=== PATIENT | female | born 1980 | race Caucasian/White ===

== ENCOUNTER 2020-01-08 10:15 | Outpatient (REF) | payer OTHER, SELFPAY ==
[2020-01-08 11:40] LABS: Alanine Aminotransferase 21 U/L (0-31); Albumin Level 4.2 g/dL (3.5-5.0); Alkaline Phosphatase 98 U/L (39-117); Anion Gap 12 (12-20); Aspartate Amino Transferase 19 U/L (5-31); Bilirubin Total 0.5 mg/dL (0.0-1.0); Blood Urea Nitrogen 7 mg/dL (9-16); Carbon Dioxide 29 mmol/L (22-29); Chloride 102 mmol/L (96-108); Cholesterol 137 mg/dL; Estimated Glomerular Filt Rate > 60; Glucose Random 93 mg/dL (60-115); HDL Cholesterol 30 mg/dL; LDL Cholesterol Calculated 56 mg/dl; Potassium 4.2 mmol/l (3.3-5.1); Sodium 139 mmol/L (135-145); Triglycerides 259 mg/dL
== END 2020-01-08 10:16 | disposition home or self-care (01) ==
LOC: HO.LAB 10:15
PROVIDERS: PCP Internal Medicine; Visit Provider Internal Medicine
DX: Z00.00 Encounter for general adult medical examination without abnormal findings (principal); M54.16 Radiculopathy, lumbar region; E78.2 Mixed hyperlipidemia; I10 Essential (primary) hypertension
CPT/HCPCS: 80053; 80061

== ENCOUNTER 2020-03-12 19:25 | Emergency (ER) | payer OTHER, SELFPAY ==
[2020-03-12 19:56] VITALS: BP 150/82; PULSE 82; RESP 16; TEMP 37; O2SAT 100; BMI 32.9
[2020-03-12 20:00] VITALS: BP 151/87; PULSE 84; RESP 16; TEMP 37.1; O2SAT 99
[2020-03-12 20:46] LABS: MANUAL DIFF FLAG NO
[2020-03-12 20:48] LABS: Basophils Percent Auto 0.4 % (0-2); Eosinophils Absolute Auto 0.1 X10*3/uL (0.0-0.4); Eosinophils Percent Auto 1.6 % (0-4); Hematocrit 38.5 % (37-47); Imm Gran Abs Auto 0.02 X10*3/uL (0.00-0.03); Imm Gran Pct Auto 0.2 % (0.0-0.4); Lymphocytes Absolute Auto 2.8 X10*3/uL (1.2-4.9); Lymphocytes Percent Auto 34.1 % (20-40); Mean Corpuscular HGB Conc 33.8 g/dl (31.0-35.0); Mean Corpuscular Hemoglobin 28.3 pg (27.0-33.0); Mean Corpuscular Volume 83.7 fL (80-98); Mean Platelet Volume 10.2 fL (9.4-12.3); Monocytes Absolute Auto 0.3 X10*3/uL (0.1-1.2); Monocytes Percent Auto 3.5 % (2-11); Neutrophils Percent Auto 60.2 % (45-73); Platelet Count 348 X10*3/uL (160-400); Red Cell Distribution Width 12.9 % (11.0-16.0); White Blood Count 8.2 X10*3/uL (4.8-10.8)
--- NOTE | 2020-03-12 20:59 | ED.HA ---
HPI - Headache General Chief Complaint: Headache Stated Complaint: headache Time Seen by Provider: 03/12/20 20:59 Source: patient Mode of arrival: ambulatory Limitations: no limitations History of Present Illness HPI Narrative: 39 yo female with HTN on amlodipine noted headaches frontal that started at 1pm today - no AC therapy, noted BP to be 160s/100s, some mild photophobia has had migraines in the past, no vomiting, no numbness or weakness, did not try anything for her BP did call her PCP who put new Rx in for her but has not taken it yet. did have a mild headache yesterday so she took tylenol with some relief MD elicited complaint: headache Pertinent past history: migraines and hypertension Onset (ago): hour(s) (8 hours ago started at 1pm) Onset description: gradually Location: frontal Severity: moderate Quality & Timing: aching and throbbing Exacerbating factors: none Relieving factors: nothing Context: occurred at rest Associated symptoms: nausea and photophobia Treatments prior to arrival: none Related Data Previous Rx's Medication Instructions Recorded diazepam [Valium] 5 mg PO TID PRN #10 tab 03/12/20 Allergies Allergy/AdvReac Type Severity Reaction Status Date / Time No Known Allergies Allergy Verified 03/12/20 20:00 [No Known Allergies*] Review of Systems Review of Systems: Constitutional : No Fever, No Chills, No Fatigue ENT/Mouth : No sore throat, No Rhinorrhea Eyes: pos photophobia, No Swelling, No Redness Cardiovascular : No Chest Pain, No SOB, No Dyspnea on Exertion Respiratory : No Cough, No Sputum Gastrointestinal : No Nausea, No Vomiting, No Diarrhea, No abdominal Pain Genitourinary : No Dysuria, No Urinary Frequency, No Hematuria, Musculoskeletal : No joint pain, No Myalgias, No Joint Swelling Skin : No Skin Lesions, No rash Neuro : No Weakness, No Numbness, No Dizziness, positive Headache Psych : No Anxiety/Panic, No Depression Heme/Lymph: No Bruising, No Bleeding,No Lymphadenopathy Endocrine : No Polyuria, No Polydipsia All other systems reviewed and are negative [facility] Past Medical History Attestation statement: The following information was validated with the patient. Medical History High blood pressure Social History Social History (Updated 03/12/20 @ 21:12 by Tasha Flores DO) Smoking Status: Never smoker Use of substances other than those prescribed or required for medical reasons: No Advance Directives: No Advance Directives Information Provided: Yes Physical Exam Vital Signs: Vital Signs: Last Vital Signs Temp 98.7 F 03/12/20 20:00 Pulse 84 03/12/20 20:00 Resp 16 03/12/20 20:00 BP 151/87 H 03/12/20 20:00 Pulse Ox 99 03/12/20 20:00 Body Mass Index 32.9 Appearance: Alert. Oriented X3. No acute distress. Eyes: Pupils equal, round and reactive to light. ENT: Pharynx normal. Neck: Normal inspection. Neck supple. no meningeal signs her thyroid does feel slightly enlarged no goiter felt CVS: Normal heart rate and rhythm. Pulses normal. Respiratory: No respiratory distress. Breath sounds normal. Abdomen: Soft and non-tender. Skin: Skin warm and dry. Normal skin color. Normal skin turgor. Extremities: No lower extremity edema. No calf ttp Neuro: Oriented X 3. No motor deficit. No sensory deficit. Course Course Course Narrative: patient reports symptoms resolved, BP 124/61 at this time, stable for DC discussed need for thyroid follow up MDM - Headache MDM Narrative Medical decision making narrative: 39 yo female with gradual onset headache no neuro deficits no AC therapy no fevers - hx unlikely to be SAH or 3D ANIMATOR infection - likely HTN related vs migraine at this time labs ordered from - will give tylenol and valium and see if this improves her symptoms, added on TSH for enlarged thyroid will discuss PCP follow for labs and possible US Lab Data Result diagrams: 03/12/20 20:40 03/12/20 20:40 Labs: Lab Results 03/12/20 03/12/20 Range/Units 20:40 20:40 WBC 8.2 (4.8-10.8) X10*3/uL RBC 4.60 (4.20-5.50) X10*6/uL Hgb 13.0 (12.0-16.0) g/dl Hct 38.5 (37-47) % MCV 83.7 (80-98) fL MCH 28.3 (27.0-33.0) pg MCHC 33.8 (31.0-35.0) g/dl RDW 12.9 (11.0-16.0) % Plt Count 348 (160-400) X10*3/uL MPV 10.2 (9.4-12.3) fL Immature Gran % (Auto) 0.2 (0.0-0.4) % Neut % (Auto) 60.2 (45-73) % Lymph % (Auto) 34.1 (20-40) % [place] % (Auto) 3.5 (2-11) % Eos % (Auto) 1.6 (0-4) % Baso % (Auto) 0.4 (0-2) % Lymph # (Auto) 2.8 (1.2-4.9) X10*3/uL [place] # (Auto) 0.3 (0.1-1.2) X10*3/uL Eos # (Auto) 0.1 (0.0-0.4) X10*3/uL Baso # (Auto) 0.0 (0.0-0.2) X10*3/uL Abs Immat Gran (auto) 0.02 (0.00-0.03) X10*3/uL Absolute Neuts (auto) 5.0 (2.0-8.3) X10*3/uL Absolute Nucleated RBC 0.000 (0.0-0.012) X10*3/uL Nucleated RBC % (auto) 0.0 (0.0-0.2) /100WBC Sodium 140 (135-145) mmol/L Potassium 3.5 (3.3-5.1) mmol/l Chloride 102 (96-108) mmol/L Carbon Dioxide 27 (22-29) mmol/L Anion Gap 15 (12-20) BUN 6 L (9-16) mg/dL Creatinine 0.69 (0.5-1.4) mg/dL Estim Creat Clear Calc 108.4 Estimated GFR > 60 Random Glucose 123 H (60-115) mg/dL Calcium 8.9 (8.4-10.2) mg/dL Total Bilirubin 0.3 (0.0-1.0) mg/dL AST 18 (5-31) U/L ALT 22 (0-31) U/L Alkaline Phosphatase 111 (39-117) U/L Total Protein 7.3 (6.5-8.0) g/dL Albumin 4.3 (3.5-5.0) g/dL Discharge Plan Discharge Clinical Impression: Tension headache Patient Disposition: Home, Self-Care Instructions: Tension Headache (ED) Additional Instructions: return to ED for any worsening symptoms or concerns YOUR THYROID GLAND FELT SLIGHTLY ENLARGED PLEASE SEE YOUR PRIMARY CARE DOCTOR YOU MAY NEED AN ULTRASOUND Prescriptions: New diazepam [Valium] 5 mg tablet 5 mg PO TID PRN (Reason: muscle spasm) Qty: 10 RF: 0 Referrals: Physician,Unknown [Primary Care Provider] - 2 days (FAMILY DOCTOR EVALUATE THYROID) Stand Alone Forms: Work/School Release Print Language: [place]
[2020-03-12] MEDS: diazePAM 5 MG TABLET PO (21:07)
[2020-03-12] MEDS: Acetaminophen 325 MG TABLET 650 MG PO (21:07)
[2020-03-12 21:12] LABS: Alanine Aminotransferase 22 U/L (0-31); Albumin Level 4.3 g/dL (3.5-5.0); Alkaline Phosphatase 111 U/L (39-117); Anion Gap 15 (12-20); Aspartate Amino Transferase 18 U/L (5-31); Bilirubin Total 0.3 mg/dL (0.0-1.0); Blood Urea Nitrogen 6 mg/dL (9-16); Calcium 8.9 mg/dL (8.4-10.2); Carbon Dioxide 27 mmol/L (22-29); Chloride 102 mmol/L (96-108); Creatinine Clr Calc Pharmacy 108.4; Estimated Glomerular Filt Rate > 60; Glucose Random 123 mg/dL (60-115); Potassium 3.5 mmol/l (3.3-5.1); Sodium 140 mmol/L (135-145); Total Protein 7.3 g/dL (6.5-8.0)
[2020-03-12 21:54] VITALS: BP 124/61
== END 2020-03-12 22:27 | disposition home or self-care (01) ==
PROVIDERS: Emergency Provider Emergency Medicine
DX: G44.209 Tension-type headache, unspecified, not intractable (principal); I10 Essential (primary) hypertension; Z79.899 Other long term (current) drug therapy
CPT/HCPCS: 36415; 80053; 84443; 85025; 99283; 99284

== ENCOUNTER 2020-03-17 12:10 | Outpatient (REF) | payer OTHER, SELFPAY ==
[2020-03-17 13:11] LABS: Alanine Aminotransferase 27 U/L (0-31); Alkaline Phosphatase 112 U/L (39-117); Anion Gap 11 (12-20); Aspartate Amino Transferase 19 U/L (5-31); Bilirubin Total 0.3 mg/dL (0.0-1.0); Blood Urea Nitrogen 8 mg/dL (9-16); Calcium 8.8 mg/dL (8.4-10.2); Carbon Dioxide 30 mmol/L (22-29); Chloride 101 mmol/L (96-108); Cholesterol 150 mg/dL; Estimated Glomerular Filt Rate > 60; Glucose Random 107 mg/dL (60-115); HDL Cholesterol 32 mg/dL; LDL Cholesterol Calculated 40 mg/dl; Potassium 3.9 mmol/l (3.3-5.1); Sodium 138 mmol/L (135-145); Triglycerides 394 mg/dL
[2020-03-17 13:18] LABS: Estimated Average Glucose 120 mg/dL; Hemoglobin A1c % 5.8 %
[2020-03-17 13:36] LABS: Thyroid Stimulating Hormone 1.37 uIU/mL (0.32-4.0)
== END 2020-03-17 12:11 | disposition home or self-care (01) ==
LOC: HO.LAB 12:10
PROVIDERS: Visit Provider Internal Medicine
DX: I10 Essential (primary) hypertension (principal); E78.2 Mixed hyperlipidemia; R51.9 Headache, unspecified
CPT/HCPCS: 36415; 80053; 80061; 83036; 84443

== ENCOUNTER 2020-04-28 15:16 | Outpatient (REF) | payer OTHER, SELFPAY | END 2020-04-28 15:17 | disposition home or self-care (01) | LOC: HO.LAB 15:16 | PROVIDERS: Visit Provider Internal Medicine | DX: Z20.822 Contact with and (suspected) exposure to COVID-19 (principal) | CPT/HCPCS: 36415; C9803; U0003; U0005 ==

== ENCOUNTER 2020-07-11 09:10 | Outpatient (REF) | payer OTHER, SELFPAY ==
[2020-07-11 10:45] LABS: Alanine Aminotransferase 22 U/L (0-31); Albumin Level 4.2 g/dL (3.5-5.0); Alkaline Phosphatase 86 U/L (39-117); Anion Gap 11 (12-20); Aspartate Amino Transferase 18 U/L (5-31); Bilirubin Total 0.4 mg/dL (0.0-1.0); Blood Urea Nitrogen 9 mg/dL (9-16); Calcium 8.8 mg/dL (8.4-10.2); Carbon Dioxide 28 mmol/L (22-29); Chloride 103 mmol/L (96-108); Cholesterol 142 mg/dL; Estimated Glomerular Filt Rate > 60; Glucose Random 99 mg/dL (60-115); HDL Cholesterol 31 mg/dL; LDL Cholesterol Calculated 56 mg/dl; Potassium 3.9 mmol/L (3.3-5.1); Sodium 138 mmol/L (135-145); Total Protein 7.1 g/dL (6.5-8.0); Triglycerides 278 mg/dL
== END 2020-07-11 09:11 | disposition home or self-care (01) ==
LOC: HO.LAB 09:10
PROVIDERS: PCP Internal Medicine; Visit Provider Internal Medicine
DX: E78.2 Mixed hyperlipidemia (principal); I10 Essential (primary) hypertension; M79.622 Pain in left upper arm
CPT/HCPCS: 36415; 80053; 80061

== ENCOUNTER 2020-10-11 04:50 | Emergency (ER) | payer OTHER, SELFPAY ==
--- NOTE | ~2020-10-11 | XR_ITS ---
EXAMINATION: XR ELBOW, RIGHT CLINICAL INFORMATION: Rule out fracture COMPARISON: None TECHNIQUE: AP, lateral, and oblique views of the right elbow. FINDINGS: There is no fracture or dislocation. Mild spurring is seen at the coronoid process. Enthesophyte formation along the lateral humeral epicondyle. Small enthesophyte at the olecranon. No elbow joint effusion. The soft tissues are unremarkable. XR/XR elbow RT 2V IMPRESSION: No fracture or malalignment. There are mild degenerative changes.
[2020-10-11 05:33] VITALS: BP 162/94; PULSE 115; RESP 20; TEMP 37.2; O2SAT 98; BMI 32.9
[2020-10-11 07:15] VITALS: BP 116/67; PULSE 101; RESP 16; O2SAT 98
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
[2020-10-11] MEDS: Diphth,Pertus(ACell),Tet Adult 0.5 ML SYRINGE IM (08:57)
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
== END 2020-10-11 09:00 | disposition home or self-care (01) ==
PROVIDERS: Emergency Provider Emergency Medicine; PCP Internal Medicine
DX: S01.01XA Laceration without foreign body of scalp, initial encounter (principal); S50.01XA Contusion of right elbow, initial encounter; Y00.XXXA Assault by blunt object, initial encounter; Y93.9 Activity, unspecified; Y92.9 Unspecified place or not applicable; Y99.9 Unspecified external cause status; Z72.89 Other problems related to lifestyle; Z63.0 Problems in relationship with spouse or partner
CPT/HCPCS: 73070; 90471; 90715; 99284

== ENCOUNTER → 2020-11-11 14:10 | Outpatient (BNVA) | payer OTHER, SELFPAY | PROVIDERS: PCP Internal Medicine; Visit Provider Surgery Vascular Surgery | DX: I83.11 Varicose veins of right lower extremity with inflammation (principal) | CPT/HCPCS: 99202 ==

== ENCOUNTER 2020-12-04 13:01 | Outpatient (REF) | payer OTHER, SELFPAY ==
--- NOTE | ~2020-12-04 | US_ITS ---
EXAMINATION: BILATERAL LOWER EXTREMITY VENOUS ULTRASOUND (Reflux Exam) CLINICAL INDICATION: Lower extremity varicose veins. COMPARISON: None. TECHNIQUE: Color flow triplex imaging and compression Doppler was performed to evaluate both the deep and the superficial systems bilaterally. To evaluate the superficial system, the examination was performed in the upright position. Color-flow Doppler ultrasound and compression ultrasound were utilized. In addition, maneuvers were utilized to demonstrate reflux. FINDINGS: 1. DEEP VENOUS ULTRASOUND OF THE RIGHT LOWER EXTREMITY: Common Femoral Vein: Compressible, normal respiratory variation and augmented flow. Femoral vein: Compressible, normal color flow and augmentation. Popliteal Vein: Compressible, normal augmentation. Deep Reflux: There is no evidence of reflux in the deep system in either the common femoral vein or the popliteal vein. There is no evidence of a Vasquez's cyst. 2. SUPERFICIAL ULTRASOUND WITH DOPPLER OF RIGHT LOWER EXTREMITY GREAT SAPHENOUS VEIN: Saphenofemoral junction: 0.4 cm; Reflux: No evidence of reflux. Max diameter: 0.5 Min diameter: 0.1 Reflux: Segmental reflux at the mid thigh measuring 0.7 seconds and at the ankle measuring greater than 3 seconds. DUPLICATED MEDIAL GREAT SAPHENOUS VEIN: None Imaged DUPLICATED LATERAL GREAT SAPHENOUS VEIN: 0.5 cm, no reflux. SMALL SAPHENOUS VEIN: Saphenopopliteal junction: 0.2 cm; Reflux: No evidence of reflux. VEIN OF GIACOMINI: None Imaged. PERFORATORS: Location: Mid thigh measuring 0.2 cm Reflux: No reflux VARICOSITIES: Location: Thigh measuring 0.8 cm Reflux: Greater than 3 seconds of reflux. 3. DEEP VENOUS ULTRASOUND OF THE LEFT LOWER EXTREMITY: Common Femoral Vein: Compressible, normal respiratory variation and augmented flow. Femoral vein: Compressible, normal color flow and augmentation. Popliteal Vein: Compressible, normal augmentation. Deep Reflux: There is no evidence of reflux in the deep system in either the common femoral vein or the popliteal vein. There is no evidence of a Vasquez's cyst. 4. SUPERFICIAL ULTRASOUND WITH DOPPLER OF LEFT LOWER EXTREMITY GREAT SAPHENOUS VEIN: Saphenopopliteal junction: 0.6 cm; Reflux: No Max diameter: 0.6 Min diameter: 0.1 Reflux: Segmental reflux at the mid thigh measuring greater than 1 second. DUPLICATED MEDIAL GREAT SAPHENOUS VEIN: None Imaged DUPLICATED LATERAL GREAT SAPHENOUS VEIN: 0.4 cm, no reflux. SMALL SAPHENOUS VEIN: Saphenofemoral junction: 0.2 cm; Reflux: No evidence of reflux. VEIN OF GIACOMINI: None Imaged. PERFORATORS: Location: Mid thigh measuring 0.1 cm. Reflux: No reflux VARICOSITIES: Location: None Imaged Reflux: NA 3. DEEP VENOUS ULTRASOUND OF THE LEFT LOWER EXTREMITY: Common Femoral Vein: Compressible, normal respiratory variation and augmented flow. Femoral vein: Compressible, normal color flow and augmentation. Popliteal Vein: Compressible, normal augmentation. Deep Reflux: There is no evidence of reflux in the deep system in either the common femoral vein or the popliteal vein. There is no evidence of a Vasquez's cyst. US/US venous duplex LE BI IMPRESSION: 1. Segmental reflux within the right great saphenous vein at the mid thigh and ankle. 2. There is a large refluxing varicosity within the thigh which arises from the right, duplicated lateral great saphenous vein. 3. Segmental reflux within the left great saphenous vein at the mid thigh. 4. No evidence of deep venous insufficiency or DVT.
== END 2020-12-04 13:02 | disposition home or self-care (01) ==
LOC: HO.US 13:01
PROVIDERS: PCP Internal Medicine; Visit Provider Surgery Vascular Surgery
DX: I83.893 Varicose veins of bilateral lower extremities with other complications (principal); I83.11 Varicose veins of right lower extremity with inflammation
CPT/HCPCS: 93970

== ENCOUNTER → 2021-02-03 10:50 | Outpatient (BNVA) | payer OTHER, SELFPAY | PROVIDERS: PCP Internal Medicine; Visit Provider Surgery Vascular Surgery | DX: I83.11 Varicose veins of right lower extremity with inflammation (principal) | CPT/HCPCS: 99212 ==

== ENCOUNTER → 2021-02-06 08:41 | Outpatient (BNVA) | payer OTHER, SELFPAY | PROVIDERS: PCP Internal Medicine; Visit Provider Surgery Vascular Surgery | DX: I83.11 Varicose veins of right lower extremity with inflammation (principal) | CPT/HCPCS: 37766 ==

== ENCOUNTER → 2021-02-23 11:05 | Outpatient (BNVA) | payer OTHER, SELFPAY | PROVIDERS: PCP Internal Medicine; Visit Provider Surgery Vascular Surgery | DX: I83.11 Varicose veins of right lower extremity with inflammation (principal) | CPT/HCPCS: 99212 ==

== ENCOUNTER 2021-09-15 09:44 | Outpatient (REF) | payer OTHER, SELFPAY ==
[2021-09-15 10:05] LABS: MANUAL DIFF FLAG NO
[2021-09-15 10:36] LABS: Basophils Percent Auto 0.4 % (0-2); Eosinophils Absolute Auto 0.2 X10*3/uL (0.0-0.4); Eosinophils Percent Auto 2.6 % (0-4); Hematocrit 39.5 % (37.0-47.0); Hemoglobin 12.6 g/dl (12.0-16.0); Imm Gran Abs Auto 0.03 X10*3/uL (0.00-0.03); Imm Gran Pct Auto 0.4 % (0.0-0.4); Lymphocytes Absolute Auto 2.7 X10*3/uL (1.2-4.9); Lymphocytes Percent Auto 37.2 % (20-40); Mean Corpuscular HGB Conc 31.9 g/dl (31.0-35.0); Mean Corpuscular Hemoglobin 26.9 pg (27.0-33.0); Mean Corpuscular Volume 84.2 fL (80.0-98.0); Mean Platelet Volume 10.3 fL (9.4-12.3); Monocytes Absolute Auto 0.3 X10*3/uL (0.1-1.2); Monocytes Percent Auto 3.6 % (2-11); Neutrophils Percent Auto 55.8 % (45-73); Platelet Count 361 X10*3/uL (160-400); Red Blood Count 4.69 X10*6/uL (4.20-5.50); Red Cell Distribution Width 12.7 % (11.0-16.0); White Blood Count 7.3 X10*3/uL (4.8-10.8)
[2021-09-15 11:06] LABS: Alanine Aminotransferase 25 U/L (0-31); Albumin Level 4.2 g/dL (3.5-5.0); Alkaline Phosphatase 89 U/L (39-117); Anion Gap 12 (12-20); Aspartate Amino Transferase 18 U/L (5-31); Bilirubin Total 0.2 mg/dL (0.0-1.0); Blood Urea Nitrogen 8 mg/dL (9-16); Carbon Dioxide 28 mmol/L (22-29); Chloride 103 mmol/L (96-108); Cholesterol 168 mg/dL; Estimated Glomerular Filt Rate > 60; Glucose Random 114 mg/dL (60-115); HDL Cholesterol 28 mg/dL; Potassium 4.5 mmol/L (3.3-5.1); Sodium 138 mmol/L (135-145); Total Protein 7.5 g/dL (6.5-8.0); Triglycerides 615 mg/dL
== END 2021-09-15 09:45 | disposition home or self-care (01) ==
LOC: HO.LAB 09:44
PROVIDERS: PCP Internal Medicine; Visit Provider Internal Medicine
DX: Z00.01 Encounter for general adult medical examination with abnormal findings (principal); E78.2 Mixed hyperlipidemia; I10 Essential (primary) hypertension
CPT/HCPCS: 36415; 80053; 80061; 85025

== ENCOUNTER 2021-12-16 10:26 | Outpatient (REF) | payer OTHER, SELFPAY ==
[2021-12-16 14:10] LABS: MANUAL DIFF FLAG NO
[2021-12-16 14:15] LABS: Basophils Percent Auto 0.6 % (0-2); Eosinophils Absolute Auto 0.2 X10*3/uL (0.0-0.4); Eosinophils Percent Auto 2.3 % (0-4); Hematocrit 37.6 % (37.0-47.0); Imm Gran Abs Auto 0.01 X10*3/uL (0.00-0.03); Imm Gran Pct Auto 0.2 % (0.0-0.4); Lymphocytes Percent Auto 31.5 % (20-40); Mean Corpuscular HGB Conc 31.9 g/dl (31.0-35.0); Mean Corpuscular Hemoglobin 27.4 pg (27.0-33.0); Mean Corpuscular Volume 85.8 fL (80.0-98.0); Mean Platelet Volume 10.5 fL (9.4-12.3); Monocytes Absolute Auto 0.3 X10*3/uL (0.1-1.2); Monocytes Percent Auto 4.4 % (2-11); Neutrophils Absolute Auto 3.9 x10*3/uL (2.0-8.3); Platelet Count 410 X10*3/uL (160-400); Red Blood Count 4.38 X10*6/uL (4.20-5.50); White Blood Count 6.4 X10*3/uL (4.8-10.8)
[2021-12-16 14:28] LABS: Estimated Average Glucose 128 mg/dL; Hemoglobin A1c % 6.1 %
[2021-12-16 14:29] LABS: Alanine Aminotransferase 17 U/L (0-31); Albumin Level 4.3 g/dL (3.5-5.0); Alkaline Phosphatase 64 U/L (39-117); Anion Gap 14 (12-20); Aspartate Amino Transferase 16 U/L (5-31); Bilirubin Total 0.3 mg/dL (0.0-1.0); Blood Urea Nitrogen 8 mg/dL (9-16); Calcium 9.1 mg/dL (8.4-10.2); Carbon Dioxide 28 mmol/L (22-29); Chloride 104 mmol/L (96-108); Cholesterol 158 mg/dL; Estimated Glomerular Filt Rate > 60; Glucose Fasting 100 mg/dL (60-99); HDL Cholesterol 39 mg/dL; LDL Cholesterol Calculated 97 mg/dl; Potassium 4.8 mmol/L (3.3-5.1); Sodium 141 mmol/L (135-145); Total Protein 7.2 g/dL (6.5-8.0); Triglycerides 112 mg/dL
== END 2021-12-16 10:27 | disposition home or self-care (01) ==
LOC: HO.10HDL 10:26
PROVIDERS: Visit Provider Internal Medicine
DX: I10 Essential (primary) hypertension (principal); E78.1 Pure hyperglyceridemia; F32.2 Major depressive disorder, single episode, severe without psychotic features; Z68.34 Body mass index [BMI] 34.0-34.9, adult
CPT/HCPCS: 36415; 80053; 80061; 83036; 84443; 85025

== ENCOUNTER 2022-04-17 19:32 | Emergency (ER) | payer OTHER, SELFPAY ==
--- NOTE | 2022-04-17 19:51 | ED.BACK ---
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 Patient reports she went to pull the patient towards her and felt pain in her back. Patient reports then since then she is having continued pain despite taking Tylenol. Patient denies any weakness, numbness, tingling of the upper lower extremities. No bowel or bladder incontinence. No fevers or chills. Patient did notify her place of employment MD elicited complaint: back pain and back injury Related Data Home Medications Medication Instructions Recorded Confirmed amlodipine 5 mg tablet 5 mg PO DAILY 11/11/20 losartan 100 mg tablet 100 mg PO DAILY 11/11/20 sennosides 8.6 mg-docusate sodium 2 tab PO DAILY 11/11/20 50 mg tablet (Senna Plus) Previous Rx's Medication Instructions Recorded diazepam 5 mg tablet (Valium) 5 mg PO TID PRN muscle spasm #10 03/12/20 tabs cyclobenzaprine 10 mg tablet 10 mg PO TID PRN muscle spasm #15 04/17/22 tabs lidocaine 5 % topical patch 1 patch topical DAILY #15 ea 04/17/22 (Lidoderm) naproxen 500 mg tablet 500 mg PO BID PRN pain #30 tabs 04/17/22 Allergies Allergy/AdvReac Type Severity Reaction Status Date / Time No Known Allergies Allergy Verified 02/23/21 11:22 [No Known Allergies*] Review of Systems Review of Systems: Yes all other systems are reviewed and are negative Constitutional: Constitutional: Reports no additional constitutional complaints, Denies body ache(s), Denies chills, Denies fever(s), Denies headache(s) and Denies weakness Eyes: Eyes: Reports no additional eye complaints and Denies change in vision ENT: Reports system reviewed and no additional complaints, except as documented, Denies dizziness, Denies headache(s), Denies nasal congestion, Denies nasal discharge and Denies neck pain Cardiovascular: Cardiovascular: Reports no additional cardiovascular complaints, Denies chest pain, Denies leg edema and Denies dyspnea Respiratory: Respiratory: Reports no additional respiratory complaints, Denies cough and Denies dyspnea Gastrointestinal: Gastrointestinal: Reports no additional gastrointestinal complaints, Denies abdominal pain, Denies diarrhea, Denies nausea and Denies vomiting Genitourinary: Genitourinary: Reports no additional female genitourinary complaints and Denies urinary incontinence Musculoskeletal: Musculoskeletal: Reports no additional musculoskeletal complaints, Reports back pain, Denies arthralgias, Denies joint swelling, Denies neck pain, Denies numbness and Denies tingling Integumentary/Breasts: Skin/Breast: Reports system reviewed and no additional complaints, except as docu and Denies rash Neurologic: Reports system reviewed and no additional complaints, except as documented, Denies Abnormal speech present, Denies dizziness, Denies headache(s), Denies numbness, Denies tingling and Denies weakness PMFSH Past Medical History Attestation statement: The following information was validated with the patient. Source: old records reviewed and nursing notes reviewed Medical History High blood pressure Social History Social History Alcohol intake: never Advance Directives: No Advance Directives Information Provided: No Physical Exam Vital Signs: Vital Signs: Last Vital Signs Temp 98.0 F 04/17/22 19:53 Pulse 82 04/17/22 19:53 Resp 18 04/17/22 19:53 BP 158/93 H 04/17/22 19:53 Pulse Ox 100 04/17/22 19:53 O2 Del Method 04/17/22 19:53 BMI result Body Mass Index 34.7 Const: General: cooperative, healthy appearing, comfortable and no acute distress Orientation/consciousness: patient oriented x3 Limitations: no limitations HEENT: Head: Yes normal to inspection Ears: hearing grossly normal bilaterally General nose exam: Normal external nose present Face and sinus: Yes normal facial exam Mouth: Normal oral and palatal mucosa present Throat: Yes posterior oropharynx normal Eyes: General: appearance normal, both eyes and all related structures Pupils: Equal, round and reactive pupils present Neck: Neck: Yes normal visual inspection Chest: Chest palpation & inspection: normal inspection of the chest Resp: Effort & Inspection: normal respiratory effort Auscultation: clear to auscultation bilaterally Cardio: Rate: regular rate Rhythm: regular rhythm Peripheral pulses: Peripheral pulses 2+ throughout GI: Inspection: Yes normal to inspection Palpation (GI): Soft to palpation and nontender Auscultation: normal bowel sounds Back/Spine/Pelvis: Thoracic/Lumbar Spine: thoracic and lumbar spine normal to inspection Back/spine/pelvis image: 1. Tenderness to palpation. No midline tenderness, step-offs deformities. Pain is worsened with rotation and flexion of the spine. Palpable muscle spasm. Skin: General skin exam: no rashes or lesions noted Neuro: General: patient oriented x3, moves all extremities, no focal motor deficits and normal sensation to monofilament Cranial nerves: Yes CN's II-XII intact bilaterally, Yes Equal, round and reactive pupils present, Yes Bilaterally intact EOM present, Yes Nystagmus not present, Yes Normal facial strength present and Yes Midline tongue present Cognition (Neuro): normal cognition Speech: No Abnormal speech present Gait exam (Neuro): Normal gait present Motor exam (neuro): 5/5 motor strength present throughout Sensory Exam: Normal double simultaneous stimulation for sensation Extrem: General: Yes normal to inspection Course Course Course Narrative: This is a rapid medical exam. Deferred additional HPI, ROS, PE to primary provider. 42 yo female with history of HTN here with back pain x 2 days. Patient was moving a patient and made a pulling sensation. Reevaluation(s) Reevaluation #1: Exam is consistent with musculoskeletal pain. Patient be discharged home with NSAIDs, muscle relaxants. Patient given Toradol in the ER with improvement of symptoms. Reviewed worrisome signs and symptoms when to return to the emergency room. Comfortable discharge home. Medications Administered Discontinued Medications Generic Name Dose Route Start Last Admin Trade Name Maulik PRN Reason Stop Dose Admin Ketorolac Tromethamine 30 mg 04/17/22 19:57 04/17/22 20:20 Ketorolac Tromethamine 30 Mg/Ml Vial IM 04/17/22 19:58 30 mg ONCE ONE Administration Medical Decision Making Medical Decision Making [facility] Narrative: 42-year-old female here with upper back pain after an injury which occurred while working 2 days ago when repositioning a patient. Patient taking Tylenol with continued symptoms. No neurological deficits or red flag symptoms. Pain is muscular on exam. No midline tenderness, step-offs or deformities. Differential Diagnosis Differential Diagnoses: The differential diagnosis associated with the presentation includes Musculoskeletal Low concern for fracture, epidural abscess, cord compression or cauda equina-no history of IV drug abuse, immunocompromised state, fevers, normal neurological exam Discharge Plan Discharge Clinical Impression: Muscle strain of left upper back, Back strain Patient Disposition: Home, Self-Care Instructions: Muscle Strain (ED), Back Pain (ED) Additional Instructions: Heat to the area gentle stretching No heavy lifting or bending follow-up with work [facility] [phone] Prescriptions: New cyclobenzaprine 10 mg tablet 10 mg PO TID PRN (Reason: muscle spasm) Qty: 15 0RF naproxen 500 mg tablet 500 mg PO BID PRN (Reason: pain) Qty: 30 0RF lidocaine [Lidoderm] 5 % adhesive patch,medicated 1 patch topical DAILY Qty: 15 0RF Rx Instructions: leave on most painful area for up to 12 hrs No Action diazepam [Valium] 5 mg tablet 5 mg PO TID PRN (Reason: muscle spasm) Qty: 10 0RF losartan 100 mg tablet 100 mg PO DAILY amlodipine 5 mg tablet 5 mg PO DAILY sennosides-docusate sodium [Senna Plus] 8.6-50 mg tablet 2 tab PO DAILY Referrals: Physician,Unknown J [Physician] - Stand Alone Forms: Work/School Release
[2022-04-17 19:53] VITALS: BP 158/93; PULSE 82; RESP 18; TEMP 36.7; O2SAT 100; BMI 34.7
[2022-04-17] MEDS: Ketorolac Tromethamine 30 MG/ML VIAL IM (20:20)
== END 2022-04-17 20:43 | disposition home or self-care (01) ==
PROVIDERS: Emergency Provider Emergency Medicine; PCP Internal Medicine
DX: S29.012A Strain of muscle and tendon of back wall of thorax, initial encounter (principal); X50.0XXA Overexertion from strenuous movement or load, initial encounter; I10 Essential (primary) hypertension; Y93.F2 Activity, caregiving, lifting; Y92.538 Other ambulatory health services establishments as the place of occurrence of the external cause; Y99.0 Civilian activity done for income or pay
CPT/HCPCS: 96372; 99283; 99284; J1885

== ENCOUNTER 2022-05-12 13:28 | Emergency (ER) | payer OTHER, SELFPAY ==
--- NOTE | ~2022-05-12 | CT_ITS ---
EXAMINATION: CT ANGIOGRAM HEAD CT ANGIOGRAM NECK CLINICAL INFORMATION: Dizziness. COMPARISON: CT head from 05/12/2022. TECHNIQUE: Initial noncontrast skip load driver imaging of the head and neck was performed. Comparison is made with noncontrast head CT from earlier today. Test bolus sequences followed by intravenous administration 70 mL of Omnipaque 350. Helical imaging was performed in the axial plane from the aortic arch to the skull vertex. Delayed postcontrast imaging of the head was also performed. The data was processed at the reliability technologist's workstation for generation of MIP sequences. Angled MIPs and volume rendered reformatted images were also generated at an offline 3D workstation. Stenoses are assessed in accordance with NASCET criteria unless otherwise indicated. This CT examination was performed using dose optimization techniques as appropriate, variously including the following: *Automated exposure control. *Adjustment of mA and/or kV according to patient size (this includes techniques or standardized protocols for targeted exams where dose is matched to indication/reason for exam; i.e. extremities or head). *Use of iterative reconstruction technique. DLP: 1414 mGy-cm FINDINGS: CT Head: There is no evidence of acute intracranial hemorrhage or edematous territorial infarction. There is no abnormal attenuation within the brain parenchyma. Mackey-white matter differentiation is preserved. The ventricles are normal in size and configuration. No evidence for obstructive hydrocephalus. No abnormal mass effect or midline shift. No extra-axial fluid collections. No pathologic intra-axial enhancement or regional oligemia. Small subgaleal edema along the posterior aspect of the left parietal bone. No associated osseous abnormalities. Mild mucosal thickening of the paranasal sinuses. The mastoid air cells and middle ear cavities are clear. Periapical lucency associated with the maxillary right lateral incisor. CT Neck: The thyroid gland and remaining cervical soft tissues are within normal limits. Straightening of the normal cervical lordosis. Mild to moderate degenerative spondyloarthropathy throughout the cervical spine. CT Upper Chest: The visualized lung apices and upper mediastinum are within normal limits. Neck CTA: Aortic Arch: Normal contour and caliber. Classic 3 vessel branching pattern of the aortic arch. Great Vessel Origins: No significant stenosis of the branch origins. Right Common Carotid Artery: No focal stenosis or occlusion. Cervical Right Internal Carotid Artery: Normal opacification without focal stenosis or occlusion. Left Common Carotid Artery: No focal stenosis or occlusion. Cervical Left Internal Carotid Artery: Normal opacification without focal stenosis or occlusion. Cervical Right Vertebral Artery: Co-dominant. No focal stenosis or occlusion. Cervical Left Vertebral Artery: Co-dominant. No focal stenosis or occlusion. Brain CTA: Intracranial Internal Carotid Arteries: No focal stenosis or occlusion. Right Anterior Cerebral Artery: Normal A1 segment. Normal opacification of the distal LUIS segments. Left Anterior Cerebral Artery: Normal A1 segment. Normal opacification of the distal LUIS segments. Anterior Communicating Artery: Normal. Right Middle Cerebral Artery: Normal M1 segment of the MCA without focal stenosis or occlusion. Normal arborization of the distal segments. Left Middle Cerebral Artery: Normal M1 segment of the MCA without focal stenosis or occlusion. Normal arborization of the distal segments. Right Vertebral Artery: Normal V4 segment. Normal opacification of the proximal segments of the posterior inferior cerebellar artery. Left Vertebral Artery: Normal V4 segment. Normal opacification of the proximal segments of the posterior inferior cerebellar artery. Basilar Artery: The basilar artery is hypoplastic throughout its course with origins of the bilateral posterior cerebral arteries. No demonstrated focal stenosis or occlusion. Normal appearance of the proximal superior cerebellar arteries. Right Posterior Cerebral Artery: The P1 segment is diminutive. origin of the BUSINESS INTELLIGENCE ANALYST with robust opacification of the posterior communicating artery. Normal opacification of the distal BUSINESS INTELLIGENCE ANALYST segments. Left Posterior Cerebral Artery: The P1 segment is diminutive. origin of the BUSINESS INTELLIGENCE ANALYST with robust opacification of the posterior communicating artery. Normal opacification of the distal BUSINESS INTELLIGENCE ANALYST segments. Normal opacification of the superior sagittal, straight, transverse, and sigmoid sinuses. CT/CT angio head neck IMPRESSION: 1. No evidence of acute intracranial hemorrhage or edematous territorial infarction. 2. CTA of the head and neck without proximal occlusion or flow-limiting stenosis. The basilar artery is relatively hypoplastic with origins of the bilateral posterior cerebral arteries.
--- NOTE | ~2022-05-12 | CT_ITS ---
EXAMINATION: CT HEAD WITHOUT CONTRAST CLINICAL INFORMATION: Headache. COMPARISON: No relevant prior imaging. TECHNIQUE: Contiguous axial imaging was performed from the skull base to vertex without intravenous administration of contrast. This CT examination was performed using dose optimization techniques as appropriate, variously including the following: *Automated exposure control *Adjustment of mA and/or kV according to patient size (this includes techniques or standardized protocols for targeted exams where dose is matched to indication/reason for exam; i.e. extremities or head) *Use of iterative reconstruction technique DLP: 661 mGy-cm FINDINGS: There is no acute intracranial hemorrhage or abnormal extra-axial collection. No intracranial mass effect or midline shift. Lateral and third ventricles are normal. No hydrocephalus. Mackey-white matter differentiation is preserved and there is no evidence of acute territorial infarct. The calvarium and skull base are intact. Mastoid air cells and middle ear cavities are well aerated. No active paranasal sinus disease. CT/CT head/brain wo IV con IMPRESSION: Normal CT scan of the head.
[2022-05-12 13:33] VITALS: BP 164/88; BP 180/100; PULSE 74; PULSE 80; RESP 16; TEMP 36.6; O2SAT 97; O2SAT 98; BMI 34.7
--- NOTE | 2022-05-12 14:02 | ED_ITS ---
HPI - General Adult General Chief complaint: Headache Stated complaint: DIZZINESS PER EMS Time Seen by Provider: 05/12/22 13:38 Source: patient Mode of arrival: ambulatory Limitations: no limitations History of Present Illness HPI narrative: THIS IS A 42 YEARS OLD FEMALE PRESENTED TO THE EMERGENCY DEPARTMENT COMPLAINING OF A HEADACHE AND DIZZINESS SINCE 06:00 A DENIES ANY CHEST PAIN SHORTNESS OF BREATH FEVER CHILLS DIZZINESS IS DESCRIBED A SPINNING . Onset (ago): hour(s) (8) Location: head Radiation: non-radiation Severity: moderate Quality: aching Pain Consistency: constant Relieving factors: none Exacerbating factors: none Related Data Home Medications Medication Instructions Recorded Confirmed amlodipine 5 mg tablet 5 mg PO DAILY 11/11/20 losartan 100 mg tablet 100 mg PO DAILY 11/11/20 sennosides 8.6 mg-docusate sodium 2 tab PO DAILY 11/11/20 50 mg tablet (Senna Plus) Previous Rx's Medication Instructions Recorded diazepam 5 mg tablet (Valium) 5 mg PO TID PRN muscle spasm #10 03/12/20 tabs cyclobenzaprine 10 mg tablet 10 mg PO TID PRN muscle spasm #15 04/17/22 tabs lidocaine 5 % topical patch 1 patch topical DAILY #15 ea 04/17/22 (Lidoderm) naproxen 500 mg tablet 500 mg PO BID PRN pain #30 tabs 04/17/22 Allergies Allergy/AdvReac Type Severity Reaction Status Date / Time No Known Allergies Allergy Verified 02/23/21 11:22 [No Known Allergies*] Review of Systems Constitutional: Constitutional: Reports no additional constitutional complaints ENT: Reports system reviewed and no additional complaints, except as documented [facility] Past Medical History [facility] Narrative: HYPERTENSION Medical History High blood pressure Social History Social History Alcohol intake: never Smoked in Last 30 Days: No Use of substances other than those prescribed or required for medical reasons: Unknown Advance Directives: No Advance Directives Information Provided: Yes Patient : No Physical Exam ED Vital Signs: Vital Signs - 24 hr 05/12/22 13:33 05/12/22 14:06 05/12/22 14:23 Temperature 97.8 F 98 F Pulse Rate 74 81 75 Respiratory Rate 16 19 14 Blood Pressure 164/88 H 153/88 H 150/82 H Pulse Oximetry 97 97 98 Oxygen Delivery Method Room Air Room Air Room Air BMI result Body Mass Index 34.7 Const General: cooperative, comfortable and no acute distress Nutritional Appearance: well nourished Orientation/consciousness: patient oriented x3 Limitations: no limitations HENMT Head: Yes normal to inspection Ears: hearing grossly normal bilaterally Face and sinus: Yes normal facial exam Mouth: Normal oral and palatal mucosa present Eyes Pupils: Equal, round and reactive pupils present Neck Neck: Yes normal visual inspection, Yes full ROM and Yes no lymphadenopathy Thyroid: Thyroid normal Chest Chest palpation & inspection: normal inspection of the chest Resp Effort & Inspection: normal respiratory effort Auscultation: clear to auscultation bilaterally Cardio Jugular venous distension: no JVD Rate: regular rate Rhythm: regular rhythm GI Inspection: Yes normal to inspection Palpation (GI): Soft to palpation and not firm Auscultation: normal bowel sounds General: Yes no CVA tenderness Back/Spine/Pelvis Back: no CVA tenderness Skin General skin exam: no rashes or lesions noted and elasticity normal Lesions: no lesions Rashes: no rashes Wounds: no wounds Neuro General: patient oriented x3 and other (PATIENT HAS A NORMAL CEREBELLAR TEST, PATIENT HAS NO NYSTAGMUS,NO SKEW) Cranial nerves: Yes CN's II-XII intact bilaterally, Yes Facial sensation intact/muscles of mastication intact, Yes Equal, round and reactive pupils pres ent, Yes Bilaterally intact EOM present and Yes Nystagmus not present Cognition (Neuro): normal cognition Motor exam (neuro): 5/5 motor strength present throughout Course Reevaluation(s) Reevaluation #1: STILL DIZZY WILL DO CTA HEAD AND NECK WILL TRY VALIUM SIGNED OUT TO DR JUNG Time: 16:29 Medications Administered Discontinued Medications Generic Name Dose Route Start Last Admin Trade Name Freq PRN Reason Stop Dose Admin Iohexol 100 ml 05/12/22 16:26 05/12/22 16:26 Iohexol 350 Mg/Ml 100 Ml Infus..Btl IV 05/12/22 16:27 70 ml ONCE ONE Administration Meclizine HCl 25 mg 05/12/22 13:51 05/12/22 14:04 Meclizine Hcl 25 Mg Tablet PO 05/12/22 13:52 25 mg ONCE ONE Administration Medical Decision Making Medical Decision Making [facility] Narrative: PATIENT PRESENTED WITH VERTIGO SYMPTOMS WE GET HEAD CT LABS MECLIZINE AND REASSESS Differential Diagnosis Differential Diagnoses: The differential diagnosis associated with the presentation includes DIFFERENTIAL DIAGNOSIS IS PERIPHERAL VERTIGO/CENTRAL VERTIGO Lab Data [facility] Lab Attestation statement: I reviewed the patient's lab results. 05/12/22 14:01 05/12/22 14:01 Labs: Lab Results 05/12/22 05/12/22 Range/Units 14:01 14:01 WBC 8.5 (4.8-10.8) X10*3/uL RBC 4.70 (4.20-5.50) X10*6/uL Hgb 12.7 (12.0-16.0) g/dl Hct 39.2 (37.0-47.0) % MCV 83.4 (80.0-98.0) fL MCH 27.0 (27.0-33.0) pg MCHC 32.4 (31.0-35.0) g/dl RDW 12.7 (11.0-16.0) % Plt Count 335 (160-400) X10*3/uL MPV 10.2 (9.4-12.3) fL Immature Gran % (Auto) 0.2 (0.0-0.4) % Neut % (Auto) 75.7 H (45-73) % Lymph % (Auto) 19.7 L (20-40) % [place] % (Auto) 3.2 (2-11) % Eos % (Auto) 0.8 (0-4) % Baso % (Auto) 0.4 (0-2) % Lymph # (Auto) 1.7 (1.2-4.9) X10*3/uL [place] # (Auto) 0.3 (0.1-1.2) X10*3/uL Eos # (Auto) 0.1 (0.0-0.4) X10*3/uL Baso # (Auto) 0.0 (0.0-0.2) X10*3/uL Abs Immat Gran (auto) 0.02 (0.00-0.03) X10*3/uL Absolute Neuts (auto) 6.5 (2.0-8.3) x10*3/uL Absolute Nucleated RBC 0.000 (0.0-0.012) X10*3/uL Nucleated RBC % (auto) 0.0 (0.0-0.2) /100WBC Sodium 137 (135-145) mmol/L Potassium 4.4 (3.3-5.1) mmol/L Chloride 101 (96-108) mmol/L Carbon Dioxide 26 (22-29) mmol/L Anion Gap 14 (12-20) BUN 8 L (9-16) mg/dL Creatinine 0.63 (0.5-1.4) mg/dL Estim Creat Clear Calc 118.5 Estimated GFR > 60 Random Glucose 107 (60-115) mg/dL Calcium 9.3 (8.4-10.2) mg/dL Total Bilirubin 0.7 (0.0-1.0) mg/dL AST 23 (5-31) U/L ALT 31 (0-31) U/L Alkaline Phosphatase 91 (39-117) U/L Total Protein 7.0 (6.5-8.0) g/dL Albumin 4.1 (3.5-5.0) g/dL Beta HCG, Quant < 2 mIU/mL Discharge Plan Discharge Clinical Impression: Dizziness Patient Disposition: Still a Patient Prescriptions: No Action diazepam [Valium] 5 mg tablet 5 mg PO TID PRN (Reason: muscle spasm) Qty: 10 0RF cyclobenzaprine 10 mg tablet 10 mg PO TID PRN (Reason: muscle spasm) Qty: 15 0RF naproxen 500 mg tablet 500 mg PO BID PRN (Reason: pain) Qty: 30 0RF lidocaine [Lidoderm] 5 % adhesive patch,medicated 1 patch topical DAILY Qty: 15 0RF Rx Instructions: leave on most painful area for up to 12 hrs losartan 100 mg tablet 100 mg PO DAILY amlodipine 5 mg tablet 5 mg PO DAILY sennosides-docusate sodium [Senna Plus] 8.6-50 mg tablet 2 tab PO DAILY
[2022-05-12] MEDS: Meclizine HCl 25 MG TABLET PO ×2 (14:04→19:25)
[2022-05-12 14:06] VITALS: BP 153/88; PULSE 81; RESP 19; O2SAT 97
[2022-05-12 14:17] LABS: MANUAL DIFF FLAG NO
[2022-05-12 14:23] VITALS: BP 150/82; PULSE 75; RESP 14; TEMP 36.6; O2SAT 98
[2022-05-12 14:32] LABS: Basophils Percent Auto 0.4 % (0-2); Eosinophils Absolute Auto 0.1 X10*3/uL (0.0-0.4); Eosinophils Percent Auto 0.8 % (0-4); Hematocrit 39.2 % (37.0-47.0); Hemoglobin 12.7 g/dl (12.0-16.0); Imm Gran Abs Auto 0.02 X10*3/uL (0.00-0.03); Imm Gran Pct Auto 0.2 % (0.0-0.4); Lymphocytes Absolute Auto 1.7 X10*3/uL (1.2-4.9); Lymphocytes Percent Auto 19.7 % (20-40); Mean Corpuscular HGB Conc 32.4 g/dl (31.0-35.0); Mean Corpuscular Volume 83.4 fL (80.0-98.0); Mean Platelet Volume 10.2 fL (9.4-12.3); Monocytes Absolute Auto 0.3 X10*3/uL (0.1-1.2); Monocytes Percent Auto 3.2 % (2-11); Neutrophils Absolute Auto 6.5 x10*3/uL (2.0-8.3); Neutrophils Percent Auto 75.7 % (45-73); Platelet Count 335 X10*3/uL (160-400); Red Cell Distribution Width 12.7 % (11.0-16.0); White Blood Count 8.5 X10*3/uL (4.8-10.8)
[2022-05-12 14:54] LABS: Alanine Aminotransferase 31 U/L (0-31); Albumin Level 4.1 g/dL (3.5-5.0); Alkaline Phosphatase 91 U/L (39-117); Anion Gap 14 (12-20); Aspartate Amino Transferase 23 U/L (5-31); Bilirubin Total 0.7 mg/dL (0.0-1.0); Blood Urea Nitrogen 8 mg/dL (9-16); Calcium 9.3 mg/dL (8.4-10.2); Carbon Dioxide 26 mmol/L (22-29); Chloride 101 mmol/L (96-108); Creatinine Clr Calc Pharmacy 118.5; Estimated Glomerular Filt Rate > 60; Glucose Random 107 mg/dL (60-115); Potassium 4.4 mmol/L (3.3-5.1); Sodium 137 mmol/L (135-145)
[2022-05-12 14:56] LABS: HCG Quantitative < 2 mIU/mL
[2022-05-12] MEDS: iohexoL 350 MG/ML 100 ML INFUS..BTL IV (16:26)
[2022-05-12] MEDS: diazePAM 2 MG TABLET 5 MG PO (16:30)
[2022-05-12 17:13] VITALS: BP 138/77; PULSE 96; RESP 23; TEMP 37; O2SAT 97
[2022-05-12 19:23] VITALS: BP 145/91; PULSE 89; RESP 15; TEMP 37.1; O2SAT 97
[2022-05-12] MEDS: LORazepam 2 MG/ML VIAL 1 MG IVPUSH (19:24)
[2022-05-12] MEDS: 0.9 % Sodium Chloride 1,000 ML 999 ML IV (19:25)
--- NOTE | 2022-05-12 19:38 | PC.NURSE ---
Pt aox3 resting at the bedside. Reports feeling I feel dizzy . Breaths are even, regular, and unlabored, RR 15 bpm. Sinus tach on monitor with HR 105. Improved BP reading. Medicated as ordered, 1L NS started. Pt tolerated well. Will continue to monitor.
--- NOTE | 2022-05-12 20:25 | PC.NURSE ---
Pt aox3. Reports feeling dizzy. Ambulated 30 feet independently with a steady gait. aware.
[2022-05-12 21:29] VITALS: BP 121/68; PULSE 104; RESP 21; TEMP 36.9; O2SAT 97
--- NOTE | 2022-05-12 21:46 | PC.NURSE ---
Pt aox3 with family at the bedside. IV line removed with no complications. Pt tolerated well. Discharge instructions reviewed with pt. Pt verbalizes understanding. Pt going home with daughter.
== END 2022-05-12 21:47 | disposition home or self-care (01) ==
PROVIDERS: Emergency Provider Emergency Medicine
DX: R42 Dizziness and giddiness (principal); M54.2 Cervicalgia; R51.9 Headache, unspecified; Z79.899 Other long term (current) drug therapy
CPT/HCPCS: 36415; 70450; 70496; 70498; 80053; 84702; 85025; 96361; 96374; 99284; J2060; Q9967

== ENCOUNTER 2022-07-06 12:28 | Outpatient (REF) | payer OTHER, SELFPAY ==
--- NOTE | ~2022-07-06 | MM_ITS ---
EXAMINATION: MM SCREENING DIGITAL BREAST TOMOSYNTHESIS, BILATERAL CLINICAL INFORMATION: Screening. Asymptomatic. No prior breast imaging. Age 42. No known family history breast cancer. The lifetime risk of breast cancer based on the Tyrer-Cuzick Model is 8%. COMPARISON: None (current study represents initial baseline exam). TECHNIQUE: Digital breast tomosynthesis is performed in both the craniocaudal and mediolateral oblique views along with computer-aided detection (CAD). Synthesized 2D images are generated from the tomosynthesis. FINDINGS: There are scattered areas of fibroglandular density (ACR BI-RADS breast composition Category b). There are no significant masses, abnormal calcifications, or other abnormalities. There are scattered bilateral benign round and predominantly dermal calcifications. The axilla and skin contours are unremarkable. MM/MM tomosynthesis screening BI IMPRESSION: No mammographic evidence of malignancy. ASSESSMENT: BI-RADS 1: Negative RECOMMENDATION: Routine annual mammography screening. This patient's information was entered into a reminder system with a target due date for their next mammogram.
== END 2022-07-06 12:29 | disposition home or self-care (01) ==
LOC: HO.MAMMO 12:28
PROVIDERS: PCP Internal Medicine; Visit Provider Internal Medicine
DX: Z12.31 Encounter for screening mammogram for malignant neoplasm of breast (principal)
CPT/HCPCS: 77063; 77067

== ENCOUNTER 2023-03-22 12:10 | Outpatient (REF) | payer OTHER, SELFPAY ==
[2023-03-22 13:18] LABS: MANUAL DIFF FLAG NO
[2023-03-22 13:23] LABS: Basophils Percent Auto 0.3 % (0-2); Eosinophils Absolute Auto 0.2 X10*3/uL (0.0-0.4); Eosinophils Percent Auto 2.2 % (0-4); Hematocrit 39.1 % (37.0-47.0); Hemoglobin 12.5 g/dl (12.0-16.0); Imm Gran Abs Auto 0.03 X10*3/uL (0.00-0.03); Imm Gran Pct Auto 0.4 % (0.0-0.4); Lymphocytes Absolute Auto 2.6 X10*3/uL (1.2-4.9); Lymphocytes Percent Auto 37.8 % (20-40); Mean Corpuscular Hemoglobin 27.1 pg (27.0-33.0); Mean Corpuscular Volume 84.8 fL (80.0-98.0); Mean Platelet Volume 10.7 fL (9.4-12.3); Monocytes Absolute Auto 0.3 X10*3/uL (0.1-1.2); Monocytes Percent Auto 4.5 % (2-11); Neutrophils Absolute Auto 3.8 x10*3/uL (2.0-8.3); Neutrophils Percent Auto 54.8 % (45-73); Platelet Count 329 X10*3/uL (160-400); Red Blood Count 4.61 X10*6/uL (4.20-5.50); White Blood Count 6.9 X10*3/uL (4.8-10.8)
[2023-03-22 14:05] LABS: Vitamin B12 248 pg/mL (200-900)
[2023-03-22 14:20] LABS: Estimated Average Glucose 126 mg/dL
[2023-03-22 15:03] LABS: CT PCR NOT DETECTED (Not Detect.); NG PCR NOT DETECTED (Not Detect.)
[2023-03-22 15:08] LABS: Alanine Aminotransferase 27 U/L (0-31); Albumin Level 4.1 g/dL (3.5-5.0); Alkaline Phosphatase 96 U/L (39-117); Anion Gap 11 (12-20); Aspartate Amino Transferase 21 U/L (5-31); Bilirubin Total 0.4 mg/dL (0.0-1.0); Blood Urea Nitrogen 11 mg/dL (9-16); Calcium 9.2 mg/dL (8.4-10.2); Carbon Dioxide 30 mmol/L (22-29); Chloride 102 mmol/L (96-108); Cholesterol 172 mg/dL (<200); Estimated Glomerular Filt Rate > 60; Ferritin 88 ng/mL (10-250); Glucose Random 98 mg/dL (60-115); HDL Cholesterol 38 mg/dL (>40); LDL Cholesterol Calculated 66 mg/dL (<100); Potassium 3.9 mmol/L (3.3-5.1); Sodium 139 mmol/L (135-145); Total Protein 7.4 g/dL (6.5-8.0); Triglycerides 341 mg/dL (<150)
== END 2023-03-22 12:11 | disposition home or self-care (01) ==
LOC: HO.10HDL 12:10
PROVIDERS: Visit Provider Internal Medicine
DX: Z00.00 Encounter for general adult medical examination without abnormal findings (principal); Z11.3 Encounter for screening for infections with a predominantly sexual mode of transmission; E78.2 Mixed hyperlipidemia; I10 Essential (primary) hypertension; M51.16 Intervertebral disc disorders with radiculopathy, lumbar region; Z98.84 Bariatric surgery status
CPT/HCPCS: 0353U; 36415; 80053; 80061; 82607; 82728; 83036; 84443; 85025

== ENCOUNTER → 2023-07-12 12:30 | Outpatient (BNV) | payer OTHER, SELFPAY | PROVIDERS: PCP Internal Medicine; Visit Provider Radiology Diagnostic Radiology | DX: Z12.31 Encounter for screening mammogram for malignant neoplasm of breast (principal) | CPT/HCPCS: 77063; 77067 ==

== ENCOUNTER 2023-07-12 12:33 | Outpatient (REF) | payer OTHER, SELFPAY ==
--- NOTE | ~2023-07-12 | MM_ITS ---
EXAMINATION: MM SCREENING DIGITAL BREAST TOMOSYNTHESIS, BILATERAL CLINICAL INFORMATION: Screening. Asymptomatic. COMPARISON: Mammography: This study is compared with prior exams dating back to 2022. TECHNIQUE: Digital breast tomosynthesis is performed in both the craniocaudal and mediolateral oblique views along with computer-aided detection (CAD). Synthesized 2D images are generated from the tomosynthesis. FINDINGS: The breasts are heterogeneously dense, which may obscure small masses (ACR BI-RADS breast composition Category c). There are no significant masses, abnormal calcifications, or other abnormalities. MM/MM tomosynthesis screening BI IMPRESSION: No mammographic evidence of malignancy. ASSESSMENT: BI-RADS BI-RADS 1 - Negative RECOMMENDATION: Routine annual mammography screening. 1 year F/U This examination should not preclude the clinical evaluation of a suspicious palpable abnormality. This patient's information was entered into a reminder system with a target due date for their next mammogram.
== END 2023-07-12 12:34 | disposition home or self-care (01) ==
LOC: HO.MAMMO 12:33
PROVIDERS: PCP Internal Medicine; Visit Provider Internal Medicine
DX: Z12.31 Encounter for screening mammogram for malignant neoplasm of breast (principal)
CPT/HCPCS: 77063; 77067

== ENCOUNTER 2024-05-09 10:08 | Outpatient (REF) | payer OTHER, SELFPAY ==
[2024-05-09 10:51] LABS: MANUAL DIFF FLAG NO
[2024-05-09 11:07] LABS: Basophils Percent Auto 0.4 % (0-2); Eosinophils Absolute Auto 0.1 X10*3/uL (0.0-0.4); Eosinophils Percent Auto 1.6 % (0-4); Hematocrit 34.3 % (37.0-47.0); Hemoglobin 11.3 g/dl (12.0-16.0); Imm Gran Abs Auto 0.01 X10*3/uL (0.00-0.03); Imm Gran Pct Auto 0.1 % (0.0-0.4); Lymphocytes Absolute Auto 2.6 X10*3/uL (1.2-4.9); Lymphocytes Percent Auto 37.4 % (20-40); Mean Corpuscular HGB Conc 32.9 g/dl (31.0-35.0); Mean Corpuscular Hemoglobin 27.8 pg (27.0-33.0); Mean Corpuscular Volume 84.3 fL (80.0-98.0); Mean Platelet Volume 10.1 fL (9.4-12.3); Monocytes Absolute Auto 0.4 X10*3/uL (0.1-1.2); Neutrophils Absolute Auto 3.8 x10*3/uL (2.0-8.3); Neutrophils Percent Auto 54.5 % (45-73); Platelet Count 331 X10*3/uL (160-400); Red Blood Count 4.07 X10*6/uL (4.20-5.50); Red Cell Distribution Width 13.2 % (11.0-16.0)
[2024-05-09 11:45] LABS: Alanine Aminotransferase 31 U/L (0-31); Alkaline Phosphatase 79 U/L (39-117); Anion Gap 9 (12-20); Aspartate Amino Transferase 23 U/L (5-31); Bilirubin Total 0.4 mg/dL (0.0-1.0); Blood Urea Nitrogen 9 mg/dL (9-16); Calcium 8.9 mg/dL (8.4-10.2); Carbon Dioxide 30 mmol/L (22-29); Chloride 106 mmol/L (96-108); Cholesterol 156 mg/dL (<200); Estimated Glomerular Filt Rate > 60; Glucose Random 97 mg/dL (60-115); HDL Cholesterol 41 mg/dL (>40); LDL Cholesterol Calculated 83 mg/dL (<100); Potassium 3.6 mmol/L (3.3-5.1); Sodium 141 mmol/L (135-145); Total Protein 7.4 g/dL (6.5-8.0); Triglycerides 161 mg/dL (<150)
[2024-05-09 11:50] LABS: Thyroid Stimulating Hormone 1.73 uIU/mL (0.32-4.0)
[2024-05-09 15:16] LABS: CT PCR NOT DETECTED (Not Detect.); NG PCR NOT DETECTED (Not Detect.)
== END 2024-05-09 10:09 | disposition home or self-care (01) ==
LOC: HO.10HDL 10:08
PROVIDERS: Visit Provider Internal Medicine
DX: Z00.00 Encounter for general adult medical examination without abnormal findings (principal); E78.2 Mixed hyperlipidemia; I10 Essential (primary) hypertension; Z11.3 Encounter for screening for infections with a predominantly sexual mode of transmission
CPT/HCPCS: 80053; 80061; 84443; 85025; 87491; 87591

== ENCOUNTER 2024-11-08 10:53 | Outpatient (REF) | payer OTHER, SELFPAY ==
[2024-11-08 13:30] LABS: Hemoglobin A1C 155.1874 umol/L; Total Hemoglobin (HGBA1C) 3229.9000 umol/L
[2024-11-08 13:49] LABS: Alanine Aminotransferase 30 U/L (0-31); Albumin Level 4.4 g/dL (3.5-5.0); Alkaline Phosphatase 87 U/L (39-117); Anion Gap 11 (12-20); Aspartate Amino Transferase 25 U/L (5-31); Blood Urea Nitrogen 12 mg/dL (9-16); Calcium 9.4 mg/dL (8.4-10.2); Carbon Dioxide 29 mmol/L (22-29); Chloride 102 mmol/L (96-108); Cholesterol 178 mg/dL (<200); Estimated Glomerular Filt Rate > 60; HDL Cholesterol 34 mg/dL (>40); Potassium 4.1 mmol/L (3.3-5.1); Sodium 138 mmol/L (135-145); Total Protein 7.5 g/dL (6.5-8.0); Triglycerides 302 mg/dL (<150)
--- OUTSIDE RECORDS SUMMARY | 2024-11-08 14:55 | XMS_ITS | Encounter Summary ---
Author Organization [facility] Address [address] [place] [address] Care Team Providers Care Business Continuity Strategy Director Name Role Phone Susi Vences MD Primary Care Provider [phone] Encounter Details Date Type Department Care Team (Late st Contact Info) Description 05/09/2024 Lab Requisition [facility] - Main Lab [address] [facility] [place] [address] Susi Vences MD [address] [place] [address] [place] [address] Encounter for gynecological examination (general) (routine) without abnormal findings Social History Tobacco Use Types Packs/Day Years Used Date Smoking Tobacco: Never Smokeless Tobacco: Never Alcohol Use Standard Drinks/Week Comments Yes 0 (1 standard drink = 0.6 oz pur e alcohol) Comments Unknown Sex and Gender Information Value Date Recorded Sex Assigned at Not on file Legal Sex Female 10:16 AM EST Gender Identity Not on file Sexual Orientation Not on file documented as of this encounter Plan of Treatment Not on file documented as of this encounter Procedures Procedure Name Priority Date/Time Associated Diagnosis Comments HPV GENOTYPE Routine 05/09/2024 12:00 AM EDT Encounter for gynecological examination (general) (routine) without abnormal findings CHLAMYDIA TRACHOMATIS AND NEISSERIA GONORRHOEAE BY TMA, THINPREP Routine 05/09/2024 12:00 AM EDT Encounter for gynecological examination (general) (routine) without abnormal findings HPV WITH REFLEX GENOTYPE Routine 05/09/2024 12:00 AM EDT Encounter for gynecological examination (general) (routine) without abnormal findings TRICHOMONAS VAGINALIS PCR Routine 05/09/2024 12:00 AM EDT Encounter for gynecological examination (general) (routine) without abnormal findings PAP SMEAR Routine 05/09/2024 12:00 AM EDT Encounter for gynecological examination (general) (routine) without abnormal findings documented in this encounter Results * HPV genotype (05/09/2024 12:00 AM EDT) HPV Type 16 Negative Negative LAB MICROBIOLOGY METHOD 05/14/2024 2:[address] [facility] HPV Type 18/45 Negative Negative LAB MICROBIOLOGY METHOD 05/14/2024 2:[address] [facility] HPV Type 16,18, and others Valid LAB MICROBIOLOGY METHOD 05/14/2024 2:[address] [facility] Brushing/Spatula Cervix uteri structure / Unknown 05/09/2024 05/09/2024 1:46 PM EDT us Susi Vences MD LAB MOLECULAR DIAGNOSTICS ORD ERABLES Final Result [facility] [address] [place] [address], [place] [phone] * (ABNORMAL) HPV with reflex genotype (05/09/2024 12:00 AM EDT) HPV Positive( A) Negative LAB MICROBIOLOGY METHOD 05/10/2024 3:[address] [facility] Brushing/Spatula Cervix uteri structure / Unknown 05/09/2024 05/09/2024 1:46 PM EDT us Susi Vences MD LAB MOLECULAR DIAGNOSTICS ORD ERABLES Final Result [facility] [address] [place] [address], [place] [phone] * Trichomonas vaginalis molecular study (05/09/2024 12:00 AM EDT) Trichomonas vaginalis Negative Negative LAB MICROBIOLOGY METHOD 05/10/2024 12:[address] [facility] Brushing/Spatula Cervix uteri structure / Unknown 05/09/2024 05/09/2024 1:46 PM EDT us Susi Vences MD LAB BLOOD ORDERABLES Final Re sult Performing Organization Address City/[facility]/ZIP Co de Phone Number [facility] [address] [place] [address], [place] [phone] * Chlamydia trachomatis and neisseria gonorrhoeae by tma, thinprep (05/09/2024 12:00 AM EDT) N. gonorrhoeae, RNA Probe Negative Negative LAB MICROBIOLOGY METHOD 05/10/2024 12:[address] [facility] Chlamydia, RNA Probe Negative Negative LAB MICROBIOLOGY METHOD 05/10/2024 12:[address] [facility] Brushing/Spatula Cervix uteri structure / Unknown 05/09/2024 05/09/2024 1:46 PM EDT us Susi Vences MD LAB CYTOLOGY ORDERABLES Final Result Performing Organization Address City/[facility]/ZIP Co de Phone Number [facility] [address] [place] [address], [place] [phone] * (ABNORMAL) Pap smear (05/09/2024 12:00 AM EDT) Interpretation Atypical squamous cells of undetermined significance(A) 05/15/2024 3:[address] [facility] General Categorization Epithelial cell abnormality, see interpretation 05/15/2024 3:[address] [facility] LMP 05/15/2024 3:[address] [facility] Comment:2 wks ago Specimen Adequacy Satisfactory for evaluation, endocervical/tra nsformation zone component present 05/15/2024 3:[address] [facility] Pap Methodology Liquid Based Pap Test 05/15/2024 3:[address] [facility] Disclaimer The Pap test is a screening test which carries an inherent false negative rate. These test results should be correlated with the patient's clinical findings and history. This Pap test was processed using an automated screening system. Technical cytopathology services provided by [facility], at [address] [place] [id number] (CLIA # [id number]/Lenin Galeano MD, Cardroom Drawing Runner.) 05/15/2024 3:[address] [facility] Console Pap Interpretation Reported 05/15/2024 3:[address] [facility] Brushing/Spatula Cervix uteri structure / Unknown 05/09/2024 05/09/2024 1:46 PM EDT us Susi Vences MD LAB CYTOLOGY ORDERABLES Final Result Performing Organization Address City/State/[facility] Co de Phone Number [facility] [address] [place] [address], documented in this encounter Visit Diagnoses Diagnosis Encounter for gynecological examination (general) (routine) without abnormal findings documented in this encounter Care Teams Business Continuity Strategy Director Relationship Specialty Start Date End Date Susi Vences MD [facility] [address] PCP - General Internal Medicine 09/27/16 documented as of this encounter
--- OUTSIDE RECORDS SUMMARY | 2024-11-08 14:55 | XMS_ITS | Clinical Summary ---
Author Organization [address] Address [address] [place] [phone] Phone Care Team Providers Care Customs Officer Name Role Phone Susi Vences MD Primary Care Provider [phone] Medical History Medical History Date Comments Generalized osteoarthrosis, unspecified site 2013 DX:Generalized osteoarthrosi s, unspecified site; COMMENT: carpal tunnel Essential hypertension 2008 DX:Essent ial hypertension; COMMENT: losarten Migraine DX:Migraine; COM MENT: topamax High blood triglycerides 2014 DX:High blood triglycerides History of vitamin D deficiency 06/09/2012 DX:History of vitamin D deficiency; COMMENT: Vitamin D = 15 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 DX:HSV-2 (herpes simplex vir us 2) infection ASCUS of cervix with negativ e high risk HPV 05/15/2009 DX:ASCUS of cervix with nega tive high risk HPV Carpal tunnel syndrome 02/27/2008 DX:Carpal tunnel syndrome History of anemia 09/20/2008 DX:History of anemia; COMMENT: H & H 10.2 / 31.6 Family History Medical History Relation Name Comments Hypertension Father Arthritis Mother Hypertension Mother Diabetes Paternal Grandmother Breast cancer Neg Hx Colon cancer Neg Hx Ovarian cancer Neg Hx Prostate cancer Neg Hx Relation Name Status Comments Father Mother Paternal Grandmother Social History Tobacco Use Types Packs/Day Years Used Date Smoking Tobacco: Never Smokeless Tobacco: Never Alcohol Use Standard Drinks/Week Comments Yes 0 (1 standard drink = 0.6 oz pur e alcohol) Comments Unknown Sex and Gender Information Value Date Recorded Sex Assigned at Not on file Legal Sex Female 10:16 AM EST Gender Identity Not on file Sexual Orientation Not on file Obstetrics History Plan of Treatment Health Maintenance Due Date Last Done Comments Breast Cancer Screening 1980 DTaP,Tdap,and Td Vaccines (1 - Tdap) 1999 Depression Screening 02/29/2024 HIV Screening 05/09/2024 Hepatitis C Screening 05/09/2024 Social Influencers of Health Screening 05/09/2024 COVID-19 Vaccine (1 - 2023-2 5 season) 2024 Influenza Vaccine (#1) 2024 Cervical Cancer Screening: HPV 05/09/2029 0 05/09/2024, 05/09/2024 Hepatitis A Vaccines Aged Out 12/03/2009, 06/23/2009, 05/23/2009 No longer eligible based on patient's age to complete this topic Hepatitis B Vaccines Completed 12/03/2009, 06/23/2009, 05/23/2009 HIB Vaccines Aged Out No longer eligi ble based on patient's age to complete this topic HPV Vaccines Aged Out No longer eligi ble based on patient's age to complete this topic IPV Vaccines Aged Out No longer eligi ble based on patient's age to complete this topic MMR Vaccines Aged Out No longer eligi ble based on patient's age to complete this topic Meningococcal ACWY Vaccine Aged Out N o longer eligible based on patient's age to complete this topic Meningococcal B Vaccine Aged Out No l onger eligible based on patient's age to complete this topic Pneumococcal Vaccine: Pediatrics (0 to 5 Years) and At-Risk Patients (6 to 49 Years) Aged Out No longer eligible b ased on patient's age to complete this topic RSV Immunization Patients Under 20 months Aged Out No longer eligible b ased on patient's age to complete this topic Varicella Vaccines Aged Out No longer eligible based on patient's age to complete this topic Procedures Procedure Name Priority Date/Time Associated Diagnosis Comments HPV WITH REFLEX GENOTYPE Routine 05/09/2024 12:00 AM EDT Encounter for gynecological examination (general) (routine) without abnormal findings from Last 3 Months or Most Recently Relevant to Health Maintenance Results * (ABNORMAL) HPV with reflex genotype (05/09/2024 12:00 AM EDT) HPV Positive( A) Negative LAB MICROBIOLOGY METHOD 05/10/2024 3:36 PM EDT [facility] Brushing/Spatula Cervix uteri structure / Unknown 05/09/2024 05/09/2024 1:46 PM EDT Susi Vences MD LAB MOLECULAR DIAGNOSTICS ORD ERABLES Final Result [facility] [address] [place] [address], from Last 3 Months or Most Recently Relevant to Health Maintenance Insurance * Guarantor: Lizett Michelle Account Type Relation to Patient Date of Phone Billing Address Personal/Family Self 1980 [address] [place] [address] [facility] [employer] Care Teams Customs Officer Relationship Specialty Start Date End Date Susi Vences MD [address] [place], [place] PCP - General Internal Medicine 09/27/16
--- OUTSIDE RECORDS SUMMARY | 2024-11-08 14:55 | XMS_ITS | Clinical Summary ---
Author Organization [facility] Address [address] [facility] [address] [place] [address] Phone Care Team Providers Care Business Controller Name Role Phone Susi Vences MD Primary Care Provider Allergies No known active allergies Medications labetalol (TRANDATE) 100 MG tablet Take 100 mg by mouth daily. Active docusate sodium (COLACE) 100 MG capsule Take 1 capsule (100 mg total) by mouth 2 (two) times a day. 60 capsule 04/16/2018 Active Active Problems No known active problems Social History Tobacco Use Types Packs/Day Years Used Date Smoking Tobacco: Never Alcohol Use Standard Drinks/Week Comments Yes 0 (1 standard drink = 0.6 oz pur e alcohol) rarely Education Answer Date Recorded Are you interested in more education? Not on chris e 06/25/2022 Are you concerned about learning? Not on file 06/25/2022 No 06/25/2022 No 06/25/2022 Digital Access Answer Date Recorded No 07/27/2022 No 07/27/2022 No 07/27/2022 Reliable internet access at home? Not on file 07/27/2022 Device with a working camera? Not on file Comments Unknown Sex and Gender Information Value Date Recorded Sex Assigned at Not on file Legal Sex Female 10:48 AM EST Gender Identity Not on file Sexual Orientation Not on file Last Filed Vital Signs Vital Sign Reading Time Taken Comments Blood Pressure 118/76 04/16/2018 2:01 PM EST Pulse 72 04/16/2018 2:01 PM EST Temperature 36.9 C (98.5 F) 04/16/2018 2:01 PM EST Respiratory Rate 16 04/16/2018 2:01 PM EST Oxygen Saturation 99% 04/16/2018 2:01 PM EST Inhaled Oxygen Concentration - - Weight 70.3 kg (155 lb) 04/16/2018 11:10 AM EST Height 157.5 cm (5' 2 ) 04/16/2018 11:10 AM EST Body Mass Index 28.35 04/16/2018 11:10 AM EST Plan of Treatment Not on file Medical Devices Not on file Insurance [employer] Kofax O [employer] Care Teams Business Controller Relationship Specialty Start Date End Date Susi Vences MD [address] [place] [address] [place] [address] PCP - General Internal Medicine 04/16/18 Additional Source Comments The information contained in this document represents components of the legal health record. It is not the complete legal health record.[facility]
== END 2024-11-08 10:54 | disposition home or self-care (01) ==
LOC: HO.10HDL 10:53
PROVIDERS: Visit Provider Internal Medicine
DX: E78.2 Mixed hyperlipidemia (principal); B97.7 Papillomavirus as the cause of diseases classified elsewhere; I10 Essential (primary) hypertension; Z86.001 Personal history of in-situ neoplasm of cervix uteri
CPT/HCPCS: 36415; 80053; 80061; 83036

== ENCOUNTER 2024-11-20 15:48 | Outpatient (REF) | payer OTHER, SELFPAY ==
--- OUTSIDE RECORDS SUMMARY | 2024-11-20 18:27 | XMS_ITS | Clinical Summary ---
Author Organization [address] Address [address] [place] [phone] Phone Care Team Providers Care Binding Printer Name Role Phone Susi Vences MD Primary Care Provider [phone] Medical History Medical History Date Comments Generalized [...] LAB MICROBIOLOGY METHOD 05/10/2024 3:36 PM EDT [facility] Brushing/Spatula Cervix uteri structure / Unknown 05/09/2024 05/09/2024 1:46 PM EDT Susi Vences MD LAB MOLECULAR DIAGNOSTICS ORD ERABLES Final Result [facility] [address] [place] [address], from Last 3 Months or Most Recently Relevant to Health Maintenance Insurance * Guarantor: Lizett Michelle Account Type Relation to Patient Date of Phone Billing Address Personal/Family Self 1980 [address] [place] [address] [facility] [email or web address] Care Teams Binding Printer Relationship Specialty Start Date End Date Susi Vences MD [address] [place], [place] PCP - General Internal Medicine 09/27/16
--- OUTSIDE RECORDS SUMMARY | 2024-11-20 18:27 | XMS_ITS | Clinical Summary ---
Author Organization [facility] Address [address] [facility] [address] [place] [address] Phone Care Team Providers Care Trust Clerk Name Role Phone Susi Vences MD Primary [...] file Medical Devices Not on file Insurance [employer] Trilibis O [employer] Care Teams Trust Clerk Relationship Specialty Start Date End Date Susi Vences MD [address] [place] [address] [place] [address] PCP - General Internal Medicine 04/16/18 Additional Source Comments The information contained in this document represents components of the legal health record. It is not the complete legal health record.[facility]
--- OUTSIDE RECORDS SUMMARY | 2024-11-20 18:27 | XMS_ITS | Encounter Summary ---
Author Organization [facility] Address [address] [place] [address] Care Team Providers Care Registered Nurse Obstetrics Name Role Phone Susi Vences MD Primary Care Provider [phone] Encounter Details Date Type Department Care Team (Late st Contact Info) Description 05/09/2024 Lab Requisition [facility] - Main Lab [address] [facility] [email or web address] [address] Susi Vences MD [address] [place] [address] [place] [address] Encounter for gynecological examination (general) (routine) without [...] LAB MICROBIOLOGY METHOD 05/14/2024 2:11 PM EDT [facility] HPV Type 18/45 Negative Negative LAB MICROBIOLOGY METHOD 05/14/2024 2:11 PM EDT [facility] HPV Type 16,18, and others Valid LAB MICROBIOLOGY METHOD 05/14/2024 2:11 PM EDT [facility] Brushing/Spatula Cervix uteri structure / Unknown 05/09/2024 05/09/2024 1:46 PM EDT us Susi Vences MD LAB MOLECULAR DIAGNOSTICS ORD ERABLES Final Result [facility] [address] [place] [address], [place] [phone] * (ABNORMAL) HPV with reflex genotype (05/09/2024 12:00 AM EDT) HPV Positive( A) Negative LAB MICROBIOLOGY METHOD 05/10/2024 3:36 PM EDT [facility] Brushing/Spatula Cervix uteri structure / Unknown 05/09/2024 05/09/2024 1:46 PM EDT us Susi Vences MD LAB MOLECULAR DIAGNOSTICS ORD ERABLES Final Result [facility] [address] [place] [address], [place] [phone] * Trichomonas vaginalis molecular study (05/09/2024 12:00 AM EDT) Trichomonas vaginalis Negative Negative LAB MICROBIOLOGY METHOD 05/10/2024 12:40 PM EDT [facility] Brushing/Spatula Cervix uteri structure / Unknown 05/09/2024 05/09/2024 1:46 PM EDT us Susi Vences MD LAB BLOOD ORDERABLES Final Re sult Performing Organization Address City/[facility]/ZIP Co de Phone Number [facility] [address] [place] [address], [place] [phone] * Chlamydia trachomatis and neisseria gonorrhoeae by tma, thinprep (05/09/2024 12:00 AM EDT) N. gonorrhoeae, RNA Probe Negative Negative LAB MICROBIOLOGY METHOD 05/10/2024 12:20 PM EDT [facility] Chlamydia, RNA Probe Negative Negative LAB MICROBIOLOGY METHOD 05/10/2024 12:20 PM EDT [facility] Brushing/Spatula Cervix uteri structure / Unknown 05/09/2024 05/09/2024 1:46 PM EDT us Susi Vences MD LAB CYTOLOGY ORDERABLES Final Result Performing Organization Address City/[facility]/ZIP Co de Phone Number [facility] [address] [place] [address], [place] [phone] * (ABNORMAL) Pap smear (05/09/2024 12:00 AM EDT) Interpretation Atypical squamous cells of undetermined significance(A) 05/15/2024 3:29 PM EDT [facility] General Categorization Epithelial cell abnormality, see interpretation 05/15/2024 3:29 PM EDT [facility] LMP 05/15/2024 3:29 PM EDT [facility] Comment:2 wks ago Specimen Adequacy Satisfactory for evaluation, endocervical/tra nsformation zone component present 05/15/2024 3:29 PM EDT [facility] Pap Methodology Liquid Based Pap Test 05/15/2024 3:29 PM EDT [facility] Disclaimer The Pap test is a screening test which carries an inherent false negative rate. These test results should be correlated with the patient's clinical findings and history. This Pap test was processed using an automated screening system. Technical cytopathology services provided by [facility], at [address] [place] [address] (CLIA # [id number]/Lenin Galeano MD, Bearing Ring Assembler.) 05/15/2024 3:29 PM EDT [facility] Console Pap Interpretation Reported 05/15/2024 3:29 PM EDT [facility] Brushing/Spatula Cervix uteri structure / Unknown 05/09/2024 05/09/2024 1:46 PM EDT us Susi Vences MD LAB CYTOLOGY ORDERABLES Final Result Performing Organization Address City/State/[facility] [[email or web address]] Co de Phone Number [facility] [address] [place] [address], documented in this encounter Visit Diagnoses Diagnosis Encounter for gynecological examination (general) (routine) without abnormal findings documented in this encounter Care Teams Registered Nurse Obstetrics Relationship Specialty Start Date End Date Susi Vences MD [facility] [address] PCP - General Internal Medicine 09/27/16 documented as of this encounter
== END 2024-11-20 15:49 | disposition home or self-care (01) ==
LOC: HO.MAMMO 15:48
PROVIDERS: PCP Internal Medicine; Visit Provider Internal Medicine
DX: Z12.31 Encounter for screening mammogram for malignant neoplasm of breast (principal)
CPT/HCPCS: 77063; 77067

== ENCOUNTER → 2024-11-20 16:00 | Outpatient (BNV) | payer OTHER, SELFPAY | PROVIDERS: PCP Internal Medicine; Visit Provider Radiology Body Imaging | DX: Z12.31 Encounter for screening mammogram for malignant neoplasm of breast (principal) | CPT/HCPCS: 77063; 77067 ==

== ENCOUNTER 2024-12-19 09:23 | Outpatient (REF) | payer OTHER, SELFPAY ==
--- NOTE | ~2024-12-19 | MM_ITS ---
EXAMINATION: MM DIAGNOSTIC DIGITAL BREAST TOMOSYNTHESIS, LEFT Left Limited ultrasound. CLINICAL INFORMATION: Call back from screening for focal asymmetry in the upper central left breast posterior depth. COMPARISON: Mammography: Priors on PACS. TECHNIQUE: Digital breast tomosynthesis is performed in both the craniocaudal and mediolateral oblique views along with computer-aided detection (CAD). Synthesized 2D images are generated from the tomosynthesis. FINDINGS: The breasts are heterogeneously dense, which may obscure small masses. Focal asymmetry retroareolar region upper central breast posterior depth persists on additional imaging projections. This area is slightly larger in comparison with priors dating back to 2022. No suspicious calcifications or other abnormal findings. Targeted color Doppler ultrasound scanning in the upper central breast 11-1 o'clock and lower central breast 5-7 o'clock and retroareolar region demonstrates normal fibronodular breast tissue. There is no sonographic abnormal finding. MM/MM tomosynthesis added views L IMPRESSION: New and increasing focal asymmetry in the retroareolar region posterior depth without sonographic correlate. Recommend stereotactic core needle biopsy. The findings and recommendations were discussed with patient and the procedure will be scheduled. ASSESSMENT: BI-RADS Category 4: Suspicious RECOMMENDATION: Biopsy recommended Results were provided to the patient at time of visit by the technologist. Electronically signed by: Falguni Mesa DO 12/19/2024 03:06 PM EDT
--- OUTSIDE RECORDS SUMMARY | 2024-12-19 10:37 | XMS_ITS | Encounter Summary ---
Author Organization [facility] Address [address] [place] [address] Care Team Providers Care Transit Operator Name Role Phone Susi Vences MD Primary Care Provider [phone] Encounter Details Date Type Department Care Team (Late st Contact Info) Description 05/09/2024 Lab Requisition [facility] - Main Lab [address] [facility] [employer] [address] Susi Vences MD [address] [place] [address] [place] [address] Encounter for gynecological examination (general) (routine) without [...] LAB MICROBIOLOGY METHOD 05/14/2024 2:11 PM EDT [facility] HPV Type 18/45 Negative Negative LAB MICROBIOLOGY METHOD 05/14/2024 2:11 PM EDT [facility] HPV Type 16,18, and others Valid LAB MICROBIOLOGY METHOD 05/14/2024 2:11 PM EDT [facility] Brushing/Spatula Cervix uteri structure / Unknown 05/09/2024 05/09/2024 1:46 PM EDT us Susi Vences MD LAB MOLECULAR DIAGNOSTICS ORD ERABLES Final Result [facility] [address] [place] [address], [place] [phone] * (ABNORMAL) HPV with reflex genotype (05/09/2024 12:00 AM EDT) HPV Positive( A) Negative LAB MICROBIOLOGY METHOD 05/10/2024 3:36 PM EDT [facility] Brushing/Spatula Cervix uteri structure / Unknown 05/09/2024 05/09/2024 1:46 PM EDT us Susi Vences MD LAB MOLECULAR DIAGNOSTICS ORD ERABLES Final Result [facility] [address] [place] [address], [place] [phone] * Trichomonas vaginalis molecular study (05/09/2024 12:00 AM EDT) Trichomonas vaginalis Negative Negative LAB MICROBIOLOGY METHOD 05/10/2024 12:40 PM EDT [facility] Brushing/Spatula Cervix uteri structure / Unknown 05/09/2024 05/09/2024 1:46 PM EDT us Susi Vences MD LAB BLOOD ORDERABLES Final Re sult Performing Organization Address City/[facility]/ZIP Co de Phone Number [facility] [address] [place] [address], [place] [phone] * Chlamydia trachomatis and neisseria gonorrhoeae by tma, thinprep (05/09/2024 12:00 AM EDT) N. gonorrhoeae, RNA Probe Negative Negative LAB MICROBIOLOGY METHOD 05/10/2024 12:20 PM EDT [facility] Chlamydia, RNA Probe Negative Negative LAB MICROBIOLOGY METHOD 05/10/2024 12:20 PM EDT [facility] Brushing/Spatula Cervix uteri structure / Unknown 05/09/2024 05/09/2024 1:46 PM EDT us Susi Vences MD LAB CYTOLOGY ORDERABLES Final Result Performing Organization Address City/[facility]/ZIP Co de Phone Number [facility] [address] [place] [address], [place] [phone] * (ABNORMAL) Pap smear (05/09/2024 12:00 AM EDT) Interpretation Atypical squamous cells of undetermined significance(A) 05/15/2024 3:29 PM EDT [facility] General Categorization Epithelial cell abnormality, see interpretation 05/15/2024 3:29 PM EDT [facility] LMP 05/15/2024 3:29 PM EDT [facility] Comment:2 wks ago Specimen Adequacy Satisfactory for evaluation, endocervical/tra nsformation zone component present 05/15/2024 3:29 PM EDT [facility] Pap Methodology Liquid Based Pap Test 05/15/2024 3:29 PM EDT [facility] Disclaimer The Pap test is a screening test which carries an inherent false negative rate. These test results should be correlated with the patient's clinical findings and history. This Pap test was processed using an automated screening system. Technical cytopathology services provided by [facility], at [address] [place] [address] (CLIA # [id number]/Lenin Galeano MD, Drug Abuse Program Coordinator.) 05/15/2024 3:29 PM EDT [facility] Console Pap Interpretation Reported 05/15/2024 3:29 PM EDT [facility] Brushing/Spatula Cervix uteri structure / Unknown 05/09/2024 05/09/2024 1:46 PM EDT us Susi Vences MD LAB CYTOLOGY ORDERABLES Final Result Performing Organization Address City/State/[facility] Co de Phone Number [facility] [address] [place] [address], documented in this encounter Visit Diagnoses Diagnosis Encounter for gynecological examination (general) (routine) without abnormal findings documented in this encounter Care Teams Transit Operator Relationship Specialty Start Date End Date Susi Vences MD [facility] [address] PCP - General Internal Medicine 09/27/16 documented as of this encounter
--- OUTSIDE RECORDS SUMMARY | 2024-12-19 10:37 | XMS_ITS | Clinical Summary ---
Author Organization [facility] Address [address] [facility] [address] [place] [address] Phone Care Team Providers Care Scrap Drop Crane Operator Name Role Phone Susi Vences MD [...] file Medical Devices Not on file Insurance [employer]off [employer] Payoff [employer] Payoff O Payoff [employer] Care Teams Scrap Drop Crane Operator Relationship Specialty Start Date End Date Susi Vences MD [address] [place] [address] [place] [address] PCP - General Internal Medicine 04/16/18 Additional Source Comments The information contained in this document represents components of the legal health record. It is not the complete legal health record.[facility]
--- OUTSIDE RECORDS SUMMARY | 2024-12-19 10:37 | XMS_ITS | Clinical Summary ---
Author Organization [address] Address [address] [place] [phone] Phone Care Team Providers Care Residency Program Coordinator Name Role Phone Susi Vences MD Primary Care Provider [phone] Medical History Medical History Date Comments Generalized [...] DTaP,Tdap,and Td Vaccines (1 - Tdap) 1999 HPV Vaccines (1 - 3-dose SCD M series) 2007 Depression Screening 02/29/2024 HIV Screening 05/09/2024 Hepatitis C Screening 05/09/2024 Social Influencers of Health Screening 05/09/2024 COVID-19 Vaccine (1 - 2023-2 5 season) 2024 Influenza Vaccine (#1) 2024 Cervical Cancer Screening: HPV 05/09/2029 0 05/09/2024, 05/09/2024 RSV Immunization Adult Patients (1 - 1-dose 75+ series) 2055 Hepatitis A Vaccines Aged Out 12/03/2009, 06/23/2009, [...] LAB MICROBIOLOGY METHOD 05/10/2024 3:36 PM EDT [facility] Brushing/Spatula Cervix uteri structure / Unknown 05/09/2024 05/09/2024 1:46 PM EDT Susi Vences MD LAB MOLECULAR DIAGNOSTICS ORD ERABLES Final Result [facility] [address] [place] [address], from Last 3 Months or Most Recently Relevant to Health Maintenance Insurance * Guarantor: Lizett Michelle Account Type Relation to Patient Date of Phone Billing Address Personal/Family Self 1980 [address] [facility] [address] [place] [address] [facility] [employer] Care Teams Residency Program Coordinator Relationship Specialty Start Date End Date Susi Vences MD [address] [facility] [address] [place], [place] PCP - General Internal Medicine 09/27/16
== END 2024-12-19 09:24 | disposition home or self-care (01) ==
LOC: HO.MAMMO 09:23
PROVIDERS: PCP Internal Medicine; Visit Provider Internal Medicine
DX: N64.89 Other specified disorders of breast (principal)
CPT/HCPCS: 76642; 77061; 77065

== ENCOUNTER → 2024-12-19 09:30 | Outpatient (BNV) | payer OTHER, SELFPAY | PROVIDERS: PCP Internal Medicine; Visit Provider Internal Medicine | DX: R92.8 Other abnormal and inconclusive findings on diagnostic imaging of breast (principal) | CPT/HCPCS: 76642; 77061; 77065 ==

== ENCOUNTER 2024-12-24 07:52 | Outpatient (AMB) | payer OTHER, SELFPAY ==
--- OUTSIDE RECORDS SUMMARY | 2024-12-24 07:55 | XMS_ITS | Encounter Summary ---
Author Organization [facility] Address [address] [place] [address] Care Team Providers Care Ambulatory Analyst Name Role Phone Susi Vences MD Primary Care Provider [phone] Encounter Details Date Type Department Care Team (Late st Contact Info) Description 05/09/2024 Lab Requisition [facility] - Main Lab [address] [facility] [place] [address] Susi Vences MD [address] [place] [address] [place] [address] Encounter for gynecological examination (general) (routine) without [...] LAB MICROBIOLOGY METHOD 05/14/2024 2:11 PM EDT [facility] HPV Type 18/45 Negative Negative LAB MICROBIOLOGY METHOD 05/14/2024 2:11 PM EDT [facility] HPV Type 16,18, and others Valid LAB MICROBIOLOGY METHOD 05/14/2024 2:11 PM EDT [facility] Brushing/Spatula Cervix uteri structure / Unknown 05/09/2024 05/09/2024 1:46 PM EDT us Susi Vences MD LAB MOLECULAR DIAGNOSTICS ORD ERABLES Final Result [facility] [address] [place] [address], [place] [phone] * (ABNORMAL) HPV with reflex genotype (05/09/2024 12:00 AM EDT) HPV Positive( A) Negative LAB MICROBIOLOGY METHOD 05/10/2024 3:36 PM EDT [facility] Brushing/Spatula Cervix uteri structure / Unknown 05/09/2024 05/09/2024 1:46 PM EDT us Susi Vences MD LAB MOLECULAR DIAGNOSTICS ORD ERABLES Final Result [facility] [address] [place] [address], [place] [phone] * Trichomonas vaginalis molecular study (05/09/2024 12:00 AM EDT) Trichomonas vaginalis Negative Negative LAB MICROBIOLOGY METHOD 05/10/2024 12:40 PM EDT [facility] Brushing/Spatula Cervix uteri structure / Unknown 05/09/2024 05/09/2024 1:46 PM EDT us Susi Vences MD LAB BLOOD ORDERABLES Final Re sult Performing Organization Address City/[facility]/ZIP Co de Phone Number [facility] [address] [place] [address], [place] [phone] * Chlamydia trachomatis and neisseria gonorrhoeae by tma, thinprep (05/09/2024 12:00 AM EDT) N. gonorrhoeae, RNA Probe Negative Negative LAB MICROBIOLOGY METHOD 05/10/2024 12:20 PM EDT [facility] Chlamydia, RNA Probe Negative Negative LAB MICROBIOLOGY METHOD 05/10/2024 12:20 PM EDT [facility] Brushing/Spatula Cervix uteri structure / Unknown 05/09/2024 05/09/2024 1:46 PM EDT us Susi Vences MD LAB CYTOLOGY ORDERABLES Final Result Performing Organization Address City/[facility]/ZIP Co de Phone Number [facility] [address] [place] [address], [place] [phone] * (ABNORMAL) Pap smear (05/09/2024 12:00 AM EDT) Interpretation Atypical squamous cells of undetermined significance(A) 05/15/2024 3:29 PM EDT [facility] General Categorization Epithelial cell abnormality, see interpretation 05/15/2024 3:29 PM EDT [facility] LMP 05/15/2024 3:29 PM EDT [facility] Comment:2 wks ago Specimen Adequacy Satisfactory for evaluation, endocervical/tra nsformation zone component present 05/15/2024 3:29 PM EDT [facility] Pap Methodology Liquid Based Pap Test 05/15/2024 3:29 PM EDT [facility] Disclaimer The Pap test is a screening test which carries an inherent false negative rate. These test results should be correlated with the patient's clinical findings and history. This Pap test was processed using an automated screening system. Technical cytopathology services provided by [facility], at [address] [place] [id number] (CLIA # [id number]/Lenin Galeano MD, Portrait Painter.) 05/15/2024 3:29 PM EDT [facility] Console Pap Interpretation Reported 05/15/2024 3:29 PM EDT [facility] Brushing/Spatula Cervix uteri structure / Unknown 05/09/2024 05/09/2024 1:46 PM EDT us Susi Vences MD LAB CYTOLOGY ORDERABLES Final Result Performing Organization Address City/State/[facility] Co de Phone Number [facility] [address] [place] [address], documented in this encounter Visit Diagnoses Diagnosis Encounter for gynecological examination (general) (routine) without abnormal findings documented in this encounter Care Teams Ambulatory Analyst Relationship Specialty Start Date End Date Susi Vences MD [facility] PCP - General Internal Medicine 09/27/16 documented as of this encounter
--- OUTSIDE RECORDS SUMMARY | 2024-12-24 07:55 | XMS_ITS | Clinical Summary ---
Author Organization [facility] Address [address] [facility] [address] [place] [address] Phone Care Team Providers Care Boot Trimmer Name Role Phone Susi Vences MD Primary [...] file Medical Devices Not on file Insurance [employer] L[employer] O [employer] Care Teams Boot Trimmer Relationship Specialty Start Date End Date Susi Vences MD [address] [place] [address] [place] [address] PCP - General Internal Medicine 04/16/18 Additional Source Comments The information contained in this document represents components of the legal health record. It is not the complete legal health record.[facility]
--- OUTSIDE RECORDS SUMMARY | 2024-12-24 07:55 | XMS_ITS | Clinical Summary ---
Author Organization [address] Address [address] [place] [phone] Phone Care Team Providers Care Automatic Brine Mixer Operator Name Role Phone Susi Vences MD Primary Care Provider [phone] Medical History Medical History Date Comments Generalized [...] MOLECULAR DIAGNOSTICS ORD ERABLES Final Result [facility]) [facility] [address] [place] [address], from Last 3 Months or Most Recently Relevant to Health Maintenance Insurance * Guarantor: Lizett Michelle Account Type Relation to Patient Date of Phone Billing Address Personal/Family Self 1980 [address] [facility] [address] [place] [address] [facility] [employer] Care Teams Automatic Brine Mixer Operator Relationship Specialty Start Date End Date Susi Vences MD [address] [facility] [address] [place], [place] PCP - General Internal Medicine 09/27/16
--- NOTE | 2024-12-24 08:05 | MHC.OFFVIS ---
Vital Signs 12/24/24 08:12 Height 5 ft 2 in Weight 185 lb 4 oz BMI 33.9 BP 131/75 Blood Pressure Location Rt brachial Position Sitting Pulse 91 Intake Visit Reasons: Lap Stereo BX for breast mass Intake Note: Patient is seen in office for stereo biopsy CONSULT left breast for mass. Pt c/o: denies pain, denies change in size or shape of the breast. Bx sched:12/25/24 @ 8am Publication Distributor Required: Yes Publication Distributor Language: Lab Clerk Services: Publication Distributor Present Publication Distributor Name: Yuri Information Interpreted: non-clinical & clinical Accompanied by: Self / Same As Patient Allergies No Known Allergies (No Known Allergies*) Allergy (Verified 12/24/24 08:13) Medication List - Last Reconciled 12/24/24 by Jae Nolasco MD amlodipine 5 mg PO DAILY cyclobenzaprine 10 mg PO TID PRN diazepam (Valium) 5 mg PO TID PRN lidocaine 5% (Lidoderm) 1 patch topical DAILY lorazepam (Ativan) 1 mg PO BID PRN losartan 100 mg PO DAILY meclizine 25 mg PO TID PRN naproxen 500 mg PO BID PRN Is last menstrual period known: Yes Last menstrual period: 12/07/24 HPI Comments Details: 44-year-old female patient presenting for evaluation of a recent screening mammogram performed on 11/20/2024 with subsequent diagnostic images and ultrasound performed of the left breast on 12/19/2024. This revealed new and increasing focal asymmetry in the retroareolar region posterior depth without sonographic correlate. Stereotactic guided core biopsy was recommended (BI-RADS 4). She denies any current breast symptoms including pain, skin change, nipple discharge, or palpable masses. She denies a previous history of breast surgery or breast cancer. Her family history is negative for breast or ovarian cancers. Her menarche was at age 13. She is 7, para 3, in her 1st child was born when she was 17. He is premenopausal in her last period began on 11/28/2024. She denies previous genetic testing. She is scheduled for a stereotactic guided core biopsy of the left breast on 12/25/2024. [facility] Medical History High blood pressure Surgical History No pertinent past surgical history Social History Alcohol intake: never Patient Tobacco Use Status: Never used Tobacco Female Reproductive History Menstrual Age of Menarche: 13 Date of last menstrual period: 12/07/24 Total pregnancies: 6 Full term: 3 Ab spontaneous: 1 Review of Systems Const All systems reviewed & are unremarkable except as noted in HPI and below Physical Exam Vital Signs: Last Vital Signs Pulse 91 12/24/24 08:12 BP 131/75 12/24/24 08:12 BMI result Body Mass Index 33.9 Const General: cooperative and no acute distress Nutritional Appearance: well nourished Orientation/consciousness: patient oriented x3 Limitations: no limitations HEENT Head: Yes normocephalic and Yes atraumatic Ears: hearing grossly normal bilaterally Chest Other: Bilateral dense breasts Left breast: No skin change, no nipple retraction, no nipple discharge, no palpable mass, no enlarged lymph nodes. Right breast: No skin change, no nipple retraction, no nipple discharge, no palpable mass, no enlarged lymph nodes Resp Effort & Inspection: normal respiratory effort, no audible wheezes, no cough and no respiratory distress Cardio Jugular venous distension: no JVD GI Inspection: Yes normal to inspection Skin Other: Warm, dry, no rash Neuro Other: Mobility Assessment: 1. 3 meter assessment time (seconds) 5 2. Gait observations: Normal balance and gait General: patient oriented x3 Extrem General: Yes no clubbing, cyanosis or edema Results Reviewed Results Reviewed: Mammogram: Assessment & Plan Assessment & Plan (1) Abnormal mammogram of left breast: Code(s): R92.8 - Other abnormal and inconclusive findings on diagnostic imaging of breast Category: Medical Plan 44-year-old female patient presenting with a recent screening mammogram with follow-up images and ultrasound which revealed a focal asymmetry in the central breast retroareolar plane posterior depth about 8 cm from the nipple with no suspicious calcifications or other abnormality seen. This was felt to be suspicious for malignancy (BI-RADS 4), and stereotactic guided core biopsy recommended. Her personal and family history is negative for breast cancer. Examination today revealed no suspicious findings in either breast although her breasts are diffusely dense. She is scheduled for a stereotactic guided core biopsy on 12/25/2024. I recommended returning in approximately 1 week to review the results and discuss treatment options as necessary. She expressed understanding and agrees with the plan. Orders: Orders MM stereotactic biopsy LT Today R92.8 - Other abnormal and inconclusive findings on diagnostic imaging of breast Coding Level of Care Code New Pt Level 4 (43520) Diagnoses Abnormal mammogram of left breast R92.8
[2024-12-24 08:12] VITALS: BP 131/75; PULSE 91; BMI 33.9
== END 2024-12-24 08:29 | disposition home or self-care (01) ==
LOC: HO.HGS 07:52
PROVIDERS: PCP Internal Medicine; Visit Provider Surgery
DX: R92.8 Other abnormal and inconclusive findings on diagnostic imaging of breast (principal)
CPT/HCPCS: 99204

== ENCOUNTER → 2024-12-24 07:52 | Outpatient (BNVA) | payer OTHER, SELFPAY | PROVIDERS: PCP Internal Medicine; Visit Provider Surgery | DX: Z71.2 Person consulting for explanation of examination or test findings (principal); R92.30 Dense breasts, unspecified; R92.8 Other abnormal and inconclusive findings on diagnostic imaging of breast | CPT/HCPCS: 99202 ==

== ENCOUNTER 2024-12-25 07:30 | Outpatient (REF) | payer OTHER, SELFPAY ==
--- NOTE | ~2024-12-25 | US_ITS ---
EXAMINATION(s)/PROCEDURE(s): 1. STEREOTACTIC TOMOSYNTHESIS-GUIDED VACUUM-ASSISTED BREAST BIOPSY, LEFT (CANCELED) 2. TARGETED ULTRASOUND OF THE LEFT BREAST CLINICAL INFORMATION: Patient is status post left diagnostic mammogram/ultrasound workup on December 19, 2024, which recommended a stereotactic needle core biopsy of the focal asymmetry in the central breast retroareolar plane without sonographic correlate.. COMPARISON: Left diagnostic mammogram/ultrasound on December 19, 2024. Screening mammogram on November 20, 2024 TECHNIQUE/PROCEDURE: Informed consent was obtained from the patient after discussion of the benefits, risks, and alternatives to biopsy today. Patient appeared to understand. Gave opportunity for questions. Patient signed consent form. BIOPSY TABLE: [employer] Aff[employer] Prone Biopsy System. FINDINGS: A full field ML 90 degrees view was obtained prior to the scheduled procedure. Known approximately 1.0 cm focal asymmetry located in the central breast retroareolar plane posterior depth at approximately 8.5 cm from the nipple was redemonstrated on the ML 90 degrees view. Multiple attempts were performed from below, medial and lateral approaches, to include the targeted focal asymmetry with a safe margin for stereotactic needle core biopsy, unsuccessfully. At this point, a targeted ultrasound of the left breast was reattempted in order to identify a sonographic correlate. This attempt was also unsuccessful. Review of the prior mammographic images show that the finding has been slowly increasing in size, however, maintaining the apparent morphological benign features. Therefore, it was decided to recommend a 6-month follow-up mammogram to reevaluate stability. Limited ultrasound should also be scheduled to follow in case needed. Findings and recommendations were discussed with the patient at the end of the visit. US/US Breast LT Limited Mamm Only IMPRESSION: 1. Left breast stereotactic needle core biopsy canceled. 2. Unsuccessful reattempt to identify sonographic correlate. RECOMMENDATION: 6 Month F/U Electronically signed by: Zelalem Randall MD 12/25/2024 05:38 PM EDT
--- OUTSIDE RECORDS SUMMARY | 2024-12-25 07:33 | XMS_ITS | Clinical Summary ---
Author Organization [address] Address [address] [place] [phone] Phone Care Team Providers Care Litigation Specialist Name Role Phone Susi Vences MD Primary Care Provider [phone] Medical History Medical History Date Comments Generalized [...] LAB MICROBIOLOGY METHOD 05/10/2024 3:36 PM EDT [facility] Brushing/Spatula Cervix uteri structure / Unknown 05/09/2024 05/09/2024 1:46 PM EDT Susi Vences MD LAB MOLECULAR DIAGNOSTICS ORD ERABLES Final Result [facility]) [facility] [address] [place] [address], from Last 3 Months or Most Recently Relevant to Health Maintenance Insurance * Guarantor: Lizett Michelle Account Type Relation to Patient Date of Phone Billing Address Personal/Family Self 1980 [address] [facility] [address] [place] [address] [facility] [employer] Care Teams Litigation Specialist Relationship Specialty Start Date End Date Susi Vences MD [address] [facility] [address] [place], [place] PCP - General Internal Medicine 09/27/16
--- OUTSIDE RECORDS SUMMARY | 2024-12-25 07:33 | XMS_ITS | Clinical Summary ---
Author Organization [facility] Address [address] [facility] [address] [place] [address] Phone Care Team Providers Care Brush Loader And Handle Attacher Name Role Phone Susi Vences MD Primary [...] file Medical Devices Not on file Insurance [employer] O [employer] Care Teams Brush Loader And Handle Attacher Relationship Specialty Start Date End Date Susi Vences MD [address] [place] [address] [place] [address] PCP - General Internal Medicine 04/16/18 Additional Source Comments The information contained in this document represents components of the legal health record. It is not the complete legal health record.[facility]
--- OUTSIDE RECORDS SUMMARY | 2024-12-25 07:33 | XMS_ITS | Encounter Summary ---
Author Organization [facility] Address [address] [place] [address] Care Team Providers Care Professor Of Literacy Name Role Phone Susi Vences MD Primary Care Provider [phone] Encounter Details Date Type Department Care Team (Late st Contact Info) Description 05/09/2024 Lab Requisition [facility] - Main Lab [address] [facility] [place] [address] Susi Vences MD [address] [place] [address] [place] [address] Encounter for gynecological examination (general) (routine) without [...] LAB MICROBIOLOGY METHOD 05/14/2024 2:11 PM EDT [facility] HPV Type 18/45 Negative Negative LAB MICROBIOLOGY METHOD 05/14/2024 2:11 PM EDT [facility] HPV Type 16,18, and others Valid LAB MICROBIOLOGY METHOD 05/14/2024 2:11 PM EDT [facility] Brushing/Spatula Cervix uteri structure / Unknown 05/09/2024 05/09/2024 1:46 PM EDT us Susi Vences MD LAB MOLECULAR DIAGNOSTICS ORD ERABLES Final Result [facility] [address] [place] [address], [place] [phone] * (ABNORMAL) HPV with reflex genotype (05/09/2024 12:00 AM EDT) HPV Positive( A) Negative LAB MICROBIOLOGY METHOD 05/10/2024 3:36 PM EDT [facility] Brushing/Spatula Cervix uteri structure / Unknown 05/09/2024 05/09/2024 1:46 PM EDT us Susi Vences MD LAB MOLECULAR DIAGNOSTICS ORD ERABLES Final Result [facility] [address] [place] [address], [place] [phone] * Trichomonas vaginalis molecular study (05/09/2024 12:00 AM EDT) Trichomonas vaginalis Negative Negative LAB MICROBIOLOGY METHOD 05/10/2024 12:40 PM EDT [facility] Brushing/Spatula Cervix uteri structure / Unknown 05/09/2024 05/09/2024 1:46 PM EDT us Susi Vences MD LAB BLOOD ORDERABLES Final Re sult Performing Organization Address City/[facility]/ZIP Co de Phone Number [facility] [address] [place] [address], [place] [phone] * Chlamydia trachomatis and neisseria gonorrhoeae by tma, thinprep (05/09/2024 12:00 AM EDT) N. gonorrhoeae, RNA Probe Negative Negative LAB MICROBIOLOGY METHOD 05/10/2024 12:20 PM EDT [facility] Chlamydia, RNA Probe Negative Negative LAB MICROBIOLOGY METHOD 05/10/2024 12:20 PM EDT [facility] Brushing/Spatula Cervix uteri structure / Unknown 05/09/2024 05/09/2024 1:46 PM EDT us Susi Vences MD LAB CYTOLOGY ORDERABLES Final Result Performing Organization Address City/[facility]/ZIP Co de Phone Number [facility] [address] [place] [address], [place] [phone] * (ABNORMAL) Pap smear (05/09/2024 12:00 AM EDT) Interpretation Atypical squamous cells of undetermined significance(A) 05/15/2024 3:29 PM EDT [facility] General Categorization Epithelial cell abnormality, see interpretation 05/15/2024 3:29 PM EDT [facility] LMP 05/15/2024 3:29 PM EDT [facility] Comment:2 wks ago Specimen Adequacy Satisfactory for evaluation, endocervical/tra nsformation zone component present 05/15/2024 3:29 PM EDT [facility] Pap Methodology Liquid Based Pap Test 05/15/2024 3:29 PM EDT [facility] Disclaimer The Pap test is a screening test which carries an inherent false negative rate. These test results should be correlated with the patient's clinical findings and history. This Pap test was processed using an automated screening system. Technical cytopathology services provided by [facility], at [address] [place] [id number] (CLIA # [id number]/Lenin Galeano MD, Clinical Rehabilitation Specialist.) 05/15/2024 3:29 PM EDT [facility] Console Pap Interpretation Reported 05/15/2024 3:29 PM EDT [facility] Brushing/Spatula Cervix uteri structure / Unknown 05/09/2024 05/09/2024 1:46 PM EDT us Susi Vences MD LAB CYTOLOGY ORDERABLES Final Result Performing Organization Address City/State/[facility] Co de Phone Number [facility] [address] [place] [address], documented in this encounter Visit Diagnoses Diagnosis Encounter for gynecological examination (general) (routine) without abnormal findings documented in this encounter Care Teams Professor Of Literacy Relationship Specialty Start Date End Date Susi Vences MD [facility] PCP - General Internal Medicine 09/27/16 documented as of this encounter
== END 2024-12-25 07:31 | disposition home or self-care (01) ==
LOC: HO.MAMMO 07:30
PROVIDERS: PCP Internal Medicine; Visit Provider Surgery
DX: R92.8 Other abnormal and inconclusive findings on diagnostic imaging of breast (principal); N64.89 Other specified disorders of breast
CPT/HCPCS: 19081; 76642

== ENCOUNTER → 2024-12-25 07:30 | Outpatient (BNV) | payer OTHER, SELFPAY | PROVIDERS: PCP Internal Medicine; Visit Provider Radiology Body Imaging | DX: R92.8 Other abnormal and inconclusive findings on diagnostic imaging of breast (principal) | CPT/HCPCS: 19081; 76642 ==